=== PATIENT | female | born 1950 | race Two or more races ===

== ENCOUNTER → 2024-07-24 | Outpatient (CLI) | payer OTHER, MEDICAID, SELFPAY ==
[2024-07-24 08:33] LABS: Collection Type, Urine Clean Catch
[2024-07-24 08:55] LABS: Glucose Estimated Average 126 mg/dL (80-131)
[2024-07-24 09:04] LABS: Basophils # (Auto) 0.1 Thou/mm3 (0.0-0.2); Basophils % (Auto) 2 % (0-2.5); Eosinophils # (Auto) 0.1 Thou/mm3 (0.0-0.5); Eosinophils % (Auto) 1 % (0-10); Hematocrit 41.4 % (36.0-46.0); Hemoglobin 13.8 g/dL (12.0-16.0); Immature Granulocytes % (Auto) 0 % (0-0); Immature Granulocytes Auto 0.01 Thou/mm3 (0.00-0.00); Lymphocytes # (Auto) 2.3 Thou/mm3 (1.0-4.8); Lymphocytes % (Auto) 42 % (10-50); Mean Corpuscular HGB Conc 33.3 g/dl (31.0-37.0); Mean Corpuscular Hemoglobin 28.3 pg (25.0-35.0); Mean Corpuscular Volume 85 fL (80-100); Monocytes # (Auto) 0.4 Thou/mm3 (0.0-0.8); Monocytes % (Auto) 7 % (0-12); Neutrophils # (Auto) 2.6 Thou/mm3 (1.8-7.7); Neutrophils % (Auto) 48 % (37-80); Nucleated Red Blood Cell % 0 /100 WBC (0); Platelet Count 235 Thou/mm3 (140-440); RDW Standard Deviation 38.6 fL (36.4-46.3); Red Blood Count 4.88 Miln/mm3 (4.00-5.20); White Blood Count 5.5 Thou/mm3 (3.6-11.0)
[2024-07-24 09:14] LABS: Prothrombin Time 11.4 Seconds (9.0-12.2)
[2024-07-24 09:18] LABS: Alanine Aminotransferase 10 U/L (10-49); Albumin, Serum 4.3 gm/dL (3.4-4.8); Albumin/Globulin Ratio 1.4 (1.2-2.2); Alkaline Phosphatase 46 U/L (46-116); Anion Gap 9 (7-16); Aspartate Amino Transferase 17 U/L (0-34); BUN/Creatinine Ratio 19 Ratio (12-20); Bilirubin,Total 1.2 mg/dL (0.3-1.2); Blood Urea Nitrogen 15 mg/dL (9-23); Calcium 9.9 mg/dL (8.3-10.6); Calcium (Corrected) 9.9 mg/dL (8.5-10.1); Carbon Dioxide 33.7 mMol/L (20.0-31.0); Cardiac Risk Estimate 3.1 RATIO (3.7-5.6); Chloride 99 mMol/L (98-107); Cholesterol 172 mg/dL (132-200); Creatinine (Component) 0.8 mg/dL (0.6-1.3); Glucose 128 mg/dL (74-106); HDL Cholesterol 55 mg/dL (40-60); LDL Cholesterol,Calculated 97 mg/dL (0-130); Osmolality,Calculated 285 (275-295); Potassium 3.4 mMol/L (3.4-5.1); Sodium 142 mMol/L (136-145); Thyroid Stimulating Hormone 1.39 uIU/mL (0.55-4.78); Total Protein 7.3 gm/dL (5.7-8.2); Triglycerides 101 mg/dL (30-150); eGFR > 60 See Note
[2024-07-24 09:36] LABS: Bilirubin,Urine Negative (Negative); Blood,Urine Trace (Negative); Clarity,Urine Clear (Clear/Hazy); Color,Urine Yellow (Lt Yel-Yel); Glucose, Urine 4+ (Negative); Ketones,Urine Negative (Negative); Leukocyte Esterase,Urine Negative (Negative); Nitrite,Urine Negative (Negative); PH,Urine 6.5 (5.0-7.0); Protein,Urine Trace (Neg - Trace); RBC,Urine 6 /hpf (0-3); Specific Gravity,Urine 1.025 (1.001-1.035); Squamous Epithelial Cell,Urine 9 /hpf (0-5); Urobilinogen,Urine Negative mg/dL (0.0-1.0); WBC,Urine 3 /hpf (0-5)
== END | disposition home or self-care (01) ==
LOC: COPL 07:58
PROVIDERS: PCP Family Medicine; Referring Provider Family Medicine; Visit Provider Internal Medicine
DX: I48.91 Unspecified atrial fibrillation (principal); I20.89 Other forms of angina pectoris; I34.0 Nonrheumatic mitral (valve) insufficiency; I50.32 Chronic diastolic (congestive) heart failure
CPT/HCPCS: 36415; 80053; 80061; 81001; 83036; 84443; 85025; 85610

== ENCOUNTER → 2024-08-28 | Outpatient (CLI) | payer MEDICARE, MEDICAID, SELFPAY ==
[2024-08-28 10:28] LABS: Glucose Estimated Average 123 mg/dL (80-131); Hemoglobin A1C 5.9 % Hgb (4.8-6.0)
[2024-08-28 10:29] LABS: Anion Gap 9 (7-16); Carbon Dioxide 34.6 mMol/L (20.0-31.0); Chloride 97 mMol/L (98-107); Potassium 2.8 mMol/L (3.4-5.1); Sodium 141 mMol/L (136-145)
== END | disposition home or self-care (01) ==
PROVIDERS: PCP Family Medicine; Referring Provider Family Medicine; Visit Provider Family Medicine
DX: I50.32 Chronic diastolic (congestive) heart failure (principal); R73.01 Impaired fasting glucose
CPT/HCPCS: 36415; 80051; 83036

== ENCOUNTER → 2024-09-12 | Outpatient (CLI) | payer MEDICARE, MEDICAID, SELFPAY ==
[2024-09-12 11:59] LABS: Anion Gap 7 (7-16); BUN/Creatinine Ratio 12 Ratio (12-20); Blood Urea Nitrogen 7 mg/dL (9-23); Calcium 8.8 mg/dL (8.3-10.6); Carbon Dioxide 30.9 mMol/L (20.0-31.0); Chloride 104 mMol/L (98-107); Creatinine (Component) 0.6 mg/dL (0.6-1.3); Glucose 113 mg/dL (74-106); Osmolality,Calculated 282 (275-295); Potassium 3.1 mMol/L (3.4-5.1); Sodium 142 mMol/L (136-145); eGFR > 60 See Note
== END | disposition home or self-care (01) ==
LOC: COPL 11:07
PROVIDERS: PCP Family Medicine; Referring Provider Family Medicine; Visit Provider Family Medicine
DX: E87.6 Hypokalemia (principal)
CPT/HCPCS: 36415; 80048

== ENCOUNTER → 2024-10-23 | Outpatient (CLI) | payer MEDICARE, MEDICAID, SELFPAY ==
[2024-10-23 10:15] LABS: Glucose Estimated Average 114 mg/dL (80-131); Hemoglobin A1C 5.6 % Hgb (4.8-6.0)
[2024-10-23 10:16] LABS: Anion Gap 7 (7-16); BUN/Creatinine Ratio 21 Ratio (12-20); Blood Urea Nitrogen 15 mg/dL (9-23); Calcium 9.5 mg/dL (8.3-10.6); Chloride 101 mMol/L (98-107); Creatinine (Component) 0.7 mg/dL (0.6-1.3); Glucose 109 mg/dL (74-106); Magnesium 2.2 mg/dL (1.6-2.6); Osmolality,Calculated 277 (275-295); Potassium 3.4 mMol/L (3.4-5.1); Sodium 138 mMol/L (136-145); eGFR > 60 See Note
== END | disposition home or self-care (01) ==
PROVIDERS: PCP Family Medicine; Referring Provider Family Medicine; Visit Provider Family Medicine
DX: E87.6 Hypokalemia (principal); E11.65 Type 2 diabetes mellitus with hyperglycemia
CPT/HCPCS: 36415; 80048; 83036; 83735

== ENCOUNTER → 2024-12-13 | Outpatient (CLI) | payer MEDICARE, MEDICAID, SELFPAY ==
--- NOTE | 2024-12-13 08:54 | XR_ITS ---
Examination: Lumbar spine, 5 views Technique: Lumbar spine AP, lateral, coned lateral lower lumbar spine, bilateral obliques 5 views Exam date and time: December 13, 2024 0923 hours Comparison December 26, 2017 INDICATIONS: Low back pain several years FINDINGS: Prominent osteopenia Advanced diffuse facet arthropathy Again noted grade 1 anterolisthesis L4 on L5 Chronic moderately severe osteoporotic compression L1 No acute lumbar fracture Moderate lumbar spondylosis Mild to moderate diffuse lumbar disc narrowing, most prominent at L4-L5 IMPRESSION: Mild to moderate diffuse lumbar degenerative disc disease
== END | disposition home or self-care (01) ==
PROVIDERS: PCP Family Medicine; Referring Provider Family Medicine; Visit Provider Family Medicine
DX: M47.816 Spondylosis without myelopathy or radiculopathy, lumbar region (principal); M51.369 Other intervertebral disc degeneration, lumbar region without mention of lumbar back pain or lower extremity pain; M80.08XA Age-related osteoporosis with current pathological fracture, vertebra(e), initial encounter for fracture
CPT/HCPCS: 72110

== ENCOUNTER → 2025-01-03 | Outpatient (CLI) | payer MEDICARE, MEDICAID, SELFPAY ==
--- NOTE | 2025-01-03 13:00 | XR_ITS ---
Examination: Bone densitometry Date and time of exam:January 03, 2025 1346 hours INDICATIONS: Hysterectomy age 54 vitamin D one month, personal history osteoporosis Technique: Lumbar spine and hip total bone mineralization values of an calculated. Peak reference and age match control results have been displayed. Findings: Lumbar spine total bone mineralization is0.922 gm/cm2. This is 1.1 standard deviations below peak reference. This is 1.3 standard deviations above age-matched controls. Hip total bone mineralization is 0.732 gm/cm2 This is 1.7 standard deviations below peak reference. This is 0.1 standard deviations above age-matched controls Impression: There is osteopenia based on lumbar spine measurements. There is osteopenia based on hip measurements Lumbar mineralization is increase 0.8% compared with July 23, 2021 Hip mineralization is decreased 4.2% compared with July 23, 2021
== END | disposition home or self-care (01) ==
LOC: CDIM 13:11
PROVIDERS: Referring Provider Family Medicine; Visit Provider Family Medicine
DX: M85.89 Other specified disorders of bone density and structure, multiple sites (principal)
CPT/HCPCS: 77080

== ENCOUNTER 2025-02-01 05:58 | Emergency (ER) | payer OTHER, MEDICAID, SELFPAY ==
[2025-02-01] VITALS (7 sets, daily range): BP systolic 130–162; BP diastolic 61–90; PULSE 74–79; RESP 16–25; TEMP 36.7–38.2; O2SAT 95–98; BMI 31.1
--- NOTE | 2025-02-01 07:26 | EKG_ITS ---
[facility] Test Date: 2025-02-01 Pat Name: JOURDAN GILL Department: Room: - Gender: Female Axminster Weaver: : 1950 Requested By: Joe Baires Order Number: [id number] Reading MD: Joe Baires Measurements Intervals [place] Rate: 78 P: IN: QRS: 37 QRSD: 115 T: -42 QT: 386 QTc: 442 Interpretive Statements ATRIAL FLUTTER/TACHYCARDIA RIGHT BUNDLE BRANCH BLOCK [120+ ms QRS DURATION, UPRIGHT V1, 40+ ms S IN I/aVL/V4/V5/V6] SEPTAL MYOCARDIAL INFARCTION , OF INDETERMINATE AGE [40+ ms Q WAVE IN V1/V2] MODERATE T-WAVE ABNORMALITY, CONSIDER LATERAL ISCHEMIA [-0.1+ mV T-WAVE IN I/aVL/V5/V6] MODERATE T-WAVE ABNORMALITY, CONSIDER INFERIOR ISCHEMIA [-0.1+ mV T-WAVE IN II/aVF] No previous ECG available for comparison /store/S0/[id number]/[id number].pdf
--- NOTE | 2025-02-01 07:26 | XR_ITS ---
Examination: PA chest single view TECHNIQUE: Upright PA chest single view Date and time: February 01, 2025, 0751 hours Comparison April 25, 2023 INDICATIONS: Chest pain shortness of breath today. FINDINGS: Mild enlargement cardiac contour Cardiac leads satisfactory position Mild prominence pulmonary vasculature. No pneumonia or pulmonary edema IMPRESSION: Mild enlargement cardiac contour. No pneumonia or pulmonary edema
--- NOTE | 2025-02-01 07:27 | PD.EDRME ---
Rapid Medical Screening Exam [facility] Arrival date/time: 02/01/25 05:58 CC: Epigastric pain, with radiation up into the chest. Onset last night patient complains of nausea vomiting and diarrhea earlier this morning. Has significant cardiac history including coronary bypass. Denies chest pain shortness of breath difficulty breathing headache. Currently pain is a 4 on a 10 scale. Chief Complaint: Abdominal Pain Time Seen by Provider: 02/01/25 07:26 Vital signs: Vital Signs Temperature 98.1 F 02/01/25 06:37 Pulse Rate 79 02/01/25 06:37 Respiratory Rate 16 02/01/25 06:37 Blood Pressure 139/66 H 02/01/25 06:37 Pulse Oximetry (%) 98 02/01/25 06:37 Oxygen Delivery Method Room Air 02/01/25 06:37
[2025-02-01] MEDS: MG HYD/AL HYD/SIME (Maalox Reg) SUSP 30 ML UDC PO (07:45)
[2025-02-01 08:32] LABS: Basophils # (Auto) 0.0 Thou/mm3 (0.0-0.2); Basophils % (Auto) 1 % (0-2.5); Eosinophils # (Auto) 0.0 Thou/mm3 (0.0-0.5); Eosinophils % (Auto) 0 % (0-10); Hematocrit 38.8 % (36.0-46.0); Hemoglobin 12.7 g/dL (12.0-16.0); Immature Granulocytes Auto 0.02 Thou/mm3 (0.00-0.00); Lymphocytes # (Auto) 0.4 Thou/mm3 (1.0-4.8); Lymphocytes % (Auto) 5 % (10-50); Mean Corpuscular HGB Conc 32.7 g/dl (31.0-37.0); Mean Corpuscular Hemoglobin 29.0 pg (25.0-35.0); Mean Corpuscular Volume 89 fL (80-100); Monocytes # (Auto) 0.3 Thou/mm3 (0.0-0.8); Monocytes % (Auto) 4 % (0-12); Neutrophils # (Auto) 7.1 Thou/mm3 (1.8-7.7); Neutrophils % (Auto) 91 % (37-80); Nucleated Red Blood Cell # 0.00 Thou/mm3 (0.00-0.00); Nucleated Red Blood Cell % 0 /100 WBC (0); Platelet Count 131 Thou/mm3 (140-440); RDW Standard Deviation 42.3 fL (36.4-46.3); Red Blood Count 4.38 Miln/mm3 (4.00-5.20); White Blood Count 7.9 Thou/mm3 (3.6-11.0)
[2025-02-01 08:49] LABS: INR 1.0 (0.9-1.3); Partial Thromboplastin Time 26.5 Seconds (22.0-36.0); Prothrombin Time 11.3 Seconds (9.0-12.2)
[2025-02-01 08:51] LABS: Alanine Aminotransferase 363 U/L (10-49); Albumin, Serum 4.2 gm/dL (3.4-4.8); Albumin/Globulin Ratio 1.4 (1.2-2.2); Alkaline Phosphatase 78 U/L (46-116); Anion Gap 11 (7-16); Aspartate Amino Transferase 947 U/L (0-34); BUN/Creatinine Ratio 18 Ratio (12-20); Bilirubin,Total 3.5 mg/dL (0.3-1.2); Blood Urea Nitrogen 14 mg/dL (9-23); Calcium 10.0 mg/dL (8.3-10.6); Calcium (Corrected) 10.0 mg/dL (8.5-10.1); Carbon Dioxide 29.7 mMol/L (20.0-31.0); Chloride 101 mMol/L (98-107); Creatinine (Component) 0.8 mg/dL (0.6-1.3); Estimated Creatinine Clearance 58.4 mL/min (>60); Globulin 2.9 gm/dL (2.3-3.5); Glucose 124 mg/dL (74-106); LDH (Lactate Dehydrogenase) 749 U/L (120-246); Magnesium 1.4 mg/dL (1.6-2.6); Osmolality,Calculated 284 (275-295); Potassium 2.8 mMol/L (3.4-5.1); Sodium 142 mMol/L (136-145); Total Protein 7.1 gm/dL (5.7-8.2); Troponin I < 0.020 ng/mL (0.0-0.045); eGFR > 60 See Note
[2025-02-01 09:08] LABS: B-Type Natriuretic Peptide 175 pg/mL (0-100)
--- NOTE | 2025-02-01 09:16 | PD.EDABDPN ---
ED Abdominal Pain RME/HPI General Chief Complaint: Abdominal Pain Stated complaint: ABD PAIN Time seen by provider: 02/01/25 07:26 Arrival date/time: 02/01/25 05:58 Limitations: no limitations RME / HPI RME / HPI narrative: 02/01/25 05:58 CC: Epigastric pain, with radiation up into the chest. Onset last night patient complains of nausea vomiting and diarrhea earlier this morning. Has significant cardiac history including coronary bypass. Denies chest pain shortness of breath difficulty breathing headache. Currently pain is a 4 on a [address] GUERRERO MAIN ED EVALUATION: 74 year old female with history of Parkinson's disease, CAD, s/p CABG, s/p pacemaker placement, hypertension presents to the ED for evaluation of epigastric abdominal pain beginning this morning. Described as aching in sensation and rating 4/10. Accompanied by nausea and vomiting. Reports history of epigastric and RUQ pain in 2021 where she had an EGD performed by Dr. Galindo showing GERD with esophagitis and gastritis. Denies fevers, chills, chest pain, cough, shortness of breath, change in bowel habits, or urinary symptoms. [employer] Operators: Dr. Maya in [place], [place]. Neurologist: Dr. Phillip Related Data Home Medications ?Medication ?Instructions ?Recorded ?Confirmed albuterol sulfate 90 mcg/actuation 2 puff inhalation BID PRN 12/23/21 12/23/21 aerosol inhaler Shortness Of Breath apixaban 5 mg tablet (Eliquis) 1 tab PO QDAY 12/23/21 12/23/21 Held on 12/23/21. Instructions: Resume on 12/24/21. NO SE MADONNA KIMBALL. carbidopa 25 mg-levodopa 100 mg 1 tab PO BID 12/23/21 12/23/21 disintegrating tablet clonazepam 0.5 mg tablet 1 tab PO HS 12/23/21 12/23/21 escitalopram oxalate 10 mg tablet 1 tab PO BID 12/23/21 12/23/21 gabapentin 300 mg capsule 1 cap PO QDAY 12/23/21 12/23/21 metoprolol tartrate 100 mg tablet 1 tab PO QDAY 12/23/21 12/23/21 pantoprazole 40 mg tablet,delayed 1 tab PO QDAY 12/23/21 12/23/21 release rosuvastatin 10 mg tablet 1 tab PO HS 12/23/21 12/23/21 Previous Rx's ?Medication ?Instructions ?Recorded ondansetron HCl 4 mg tablet 4 mg PO TID FOR NAUSEA #14 tabs 02/02/25 Allergies Allergy/AdvReac Type Severity Reaction Status Date / Time No Known Allergies Allergy Verified 12/23/21 11:35 Review of Systems Review of Systems Systems Reviewed: All systems reviewed, normal except as documented Past Medical History Past Medical History NEUROLOGIC: Positive Neurological Disorders, Cerebrovascular Accident and Parkinson's Disease CARDIAC: Positive Cardiac Disorders, Hypercholesterolemia and Hypertension MUSCULOSKELETAL: Positive Musculoskeletal Disorders, Arthritis and Fibromyalgia Surgical History SURGICAL: Positive Coronary Artery Bypass Graft (30 years ago) and Pacemaker Social History SMOKING STATUS: Never smoker ED Exam General Limitations: Present no limitations General appearance: Present alert and in no apparent distress Head Head exam: Present atraumatic, normocephalic and normal inspection Eye Eye exam: Present normal appearance, PERRL and EOMI ENT ENT exam: Present normal exam, normal oropharynx and mucous membranes moist Neck Neck exam: Present normal inspection, full ROM and trachea midline Chest Chest inspection: Present normal inspection and symmetric chest wall rise Respiratory Respiratory exam: Present normal lung sounds bilaterally Cardiovascular Cardiovascular exam: Present regular rate, normal rhythm and normal heart sounds Abdominal Exam Abdominal exam: Present soft, tenderness (Mild RUQ tenderness 1+, no masses, no percussion, no rebound ) and normal bowel sounds; Absent distention Extremities Exam Extremities exam: Present normal inspection and full ROM Back Exam Back exam: Present normal inspection and full ROM Neurological Exam Neurological exam: Present alert, oriented X3 and CN II-XII intact Psychiatric Psychiatric exam: Present normal affect and normal mood Skin Skin exam: Present warm, dry, intact and normal color Course Quality Measures none Orders Category Date Time Status CT Screening NOW Care 02/02/25 15:29 Active EKG (ED ONLY) *Do not use* NOW Care 02/01/25 07:26 Completed Insert IV NOW Care 02/01/25 08:39 Active MRI Screening NOW Care 02/01/25 12:26 Active Consult to Cardiology Stat Cons 02/01/25 20:19 Ordered CA echo doppler complete Stat Exams 02/01/25 20:[address] abdomen pelvis w con Stat Exams 02/02/25 15:29 Completed EKG (ED Only) Stat Exams 02/01/25 07:26 Draft MR MRCP Stat Exams 02/02/25 Completed US gall bladder Stat Exams 02/01/25 09:29 Completed XR chest 1V Stat Exams 02/01/25 07:26 Completed B-Type Natriuretic Peptide Stat Lab 02/01/25 08:00 Completed Blood Culture (Lab) Stat Lab 02/01/25 16:02 Results CBC Stat Lab 02/01/25 08:00 Completed CBC Stat Lab 02/01/25 16:02 Completed CBC Stat Lab 02/02/25 07:00 Completed CMP [Comprehensive Metabolic Panel] Stat Lab 02/01/25 16:02 Completed CMP [Comprehensive Metabolic Panel] Stat Lab 02/02/25 07:00 Completed Comprehensive Metabolic Panel Stat Lab 02/01/25 08:00 Completed Drug Screen,Urine Stat Lab 02/01/25 14:10 Completed LDH (Lactate Dehydrogenase) Stat Lab 02/01/25 08:00 Completed Lactate (Lactic Acid) Stat Lab 02/01/25 16:02 Completed Lactic Acid [Lactate (Lactic Acid)] Stat Lab 02/02/25 07:00 Completed Lactic Acid, 3 HR Stat Lab 02/01/25 20:24 Completed Lipase Stat Lab 02/02/25 07:00 Completed Magnesium Stat Lab 02/01/25 08:00 Completed Magnesium Stat Lab 02/01/25 16:02 Completed Partial Thromboplastin Time Stat Lab 02/01/25 08:00 Completed Procalcitonin Stat Lab 02/01/25 16:02 Completed Procalcitonin Stat Lab 02/02/25 07:00 Completed Prothrombin Time with INR Stat Lab 02/01/25 08:00 Completed Troponin I Stat Lab 02/01/25 08:00 Completed Urinalysis Stat Lab 02/01/25 14:10 Completed Acetaminophen Tab [Tylenol Tab] Med 02/01/25 20:13 Discontinued 650 mg PO X1 ONE Ketorolac Inj [Toradol Inj] Med 02/01/25 20:57 Discontinued 30 mg IVP X1 ONE Magnesium Sulfate 2 GM Ivpb [Magnesium Sulfate Ivpb] Med 02/01/25 09:32 Discontinued 2 gm in 50 ml IV X1 POTASSIUM CHL 10 mEq IVPB [Kcl Ivpb] Med 02/01/25 09:31 Discontinued 10 meq in 100 ml IV Q1H POTASSIUM CHL 10 mEq IVPB [Kcl Ivpb] Med 02/02/25 10:52 Discontinued 10 meq in 100 ml IV Q1H Piper/Tazo 3.375 gm Premix [Zosyn] Med 02/01/25 15:38 Discontinued 3.375 gm in 50 ml IV X1 Piper/Tazo 3.375 gm Premix [Zosyn] Med 02/02/25 01:27 Discontinued 3.375 gm in 50 ml IV X1 Piper/Tazo 3.375 gm Premix [Zosyn] Med 02/02/25 08:00 Discontinued 3.375 gm in 50 ml IV X1 Sodium Chloride 0.9% 1000 ml [Ns] 1,000 ml Med 02/01/25 10:15 Discontinued IV 250 mls/hr Sodium Chloride 0.9% 500 ml [Ns] 500 ml Med 02/02/25 10:52 Discontinued IV 999 mls/hr mg Hyd/Al Hyd/Angel Susp [Maalox Susp] Med 02/01/25 07:26 Discontinued 30 ml PO X1 ONE Vital Signs Vital signs: Vital Signs Temperature 98.1 F 02/01/25 06:37 Pulse Rate 79 02/01/25 06:37 Respiratory Rate 16 02/01/25 06:37 Blood Pressure 139/66 H 02/01/25 06:37 Pulse Oximetry (%) 98 02/01/25 06:37 Oxygen Delivery Method Room Air 02/01/25 06:37 Pulse ox is 98% on room air which is adequate. Abdominal Pain MDM MDM Narrative MDM Narrative:: Enedina Mo am scribing for and in the presence of Dr. Guerrero. 1800: Patient signed out to Dr. Christian pending MRCP. Patient data External records reviewed:: [facility] previous records (I reviewed EGD on 12/23/2021 ) Clinical information provided by:: patient Social determinants that could affect healthcare access:: none Patient has the following chronic illnesses:: Parkinson's disease, CAD, s/p CABG, s/p pacemaker placement, hypertension In 2021 diagnosed with GERD and gastritis How is presenting disease/condition affected by chronic disease/condition?: exacerbated by Evaluation data The following diagnostics were reviewed and interpreted by me:: lab results, radiology exam(s) and EKG tracing(s) (02/01/2025 @ 07:31 AM. Atrial tachycardia, rate 78, right bundle branch block, no STEMI) Lab and/or radiology exams considered but not ordered:: None Interpretation Summary: Ordering Physician: Joe Doan NP Date of Service: 02/01/25 Procedure(s): XR chest 1V Accession Number(s): [id number] cc: Joe Doan NP; Keith Alvares MD~ Examination: PA chest single view TECHNIQUE: Upright PA chest single view Date and time: February 01, 2025, 0751 hours Comparison April 25, 2023 INDICATIONS: Chest pain shortness of breath today. FINDINGS: Mild enlargement cardiac contour Cardiac leads satisfactory position Mild prominence pulmonary vasculature. No pneumonia or pulmonary edema IMPRESSION: Mild enlargement cardiac contour. No pneumonia or pulmonary edema Dictated By: Keith Alvares MD Signed By: <Electronically signed by Keith Alvares MD in [place]> 02/01/25 0759 Ordering Physician: Jaylen Guerrero MD Date of Service: 02/01/25 Procedure(s): US gall bladder Accession Number(s): [id number] cc: Jaylen Guerrero MD; Keith Alvares MD; Ivy Green MD~ Examination: Abdomen sonogram, Limited Date and time of exam: February 01, 2025, 0947 hours INDICATIONS: Epigastric pain beginning today Technique: Real-time lofton scale transabdominal sonographic images of the upper abdomen obtained. Findings: 7 mm echogenic structure without shadowing which may represent a sludge ball or polyp Gallbladder wall 0.35 cm no edema Common bile duct 0.4 cm Pancreatic head 2.8 cm Liver 13.4 cm fatty infiltration smooth contour no focal liver lesions Normal hepatopedal portal venous flow Patent IVC IMPRESSION: 7 mm sludge ball or polyp Borderline thickening gallbladder wall 0.35 cm, clinical correlation advised, consider HIDA scan or MRCP follow-up to exclude cholecystitis as clinically warranted Dictated By: Keith Alvares MD Signed By: <Electronically signed by Keith Alvares MD in [place]> 02/01/25 1018 Medications / Prescriptions Medications or Prescriptions considered but not ordered:: None Medication administrations:: Medication Administration History Discontinued Medications Acetaminophen (Acetaminophen 325 Mg Tablet) 650 mg PO X1 ONE Stop: 02/01/25 20:14 Last Admin: 02/01/25 20:58 Dose: Not Given Documented By: DK Non-Admin Reason: Cancelled by Provider Al Hydrox/Mg Hydrox/Simethicone (Mg Hyd/Al Hyd/Angel (Maalox Reg) Susp 30 Ml Udc) 30 ml PO X1 ONE Stop: 02/01/25 07:27 Last Admin: 02/01/25 07:45 Dose: 30 ml Documented By: BENY Potassium Chloride (Kcl Ivpb) 10 meq in 100 mls @ 100 mls/hr IV Q1H MORRIS Stop: 02/01/25 13:30 Last Infusion: 02/01/25 15:48 Dose: Infused Documented By: Admin: 02/01/25 13:40 Dose: 60 mls/hr Documented By: Infusion: 02/01/25 13:31 Dose: Infused Documented By: Infusion: 02/01/25 12:35 Dose: 60 mls/hr Documented By: Admin: 02/01/25 12:08 Dose: 100 mls/hr Documented By: Infusion: 02/01/25 12:06 Dose: Infused Documented By: Admin: 02/01/25 11:06 Dose: 100 mls/hr Documented By: Infusion: 02/01/25 11:06 Dose: Infused Documented By: Admin: 02/01/25 10:31 Dose: 100 mls/hr Documented By: BENY Magnesium Sulfate (Magnesium Sulfate Ivpb) 2 gm in 50 mls @ 25 mls/hr IV X1 ONE Stop: 02/01/25 11:31 Last Infusion: 02/01/25 12:16 Dose: Infused Documented By: Admin: 02/01/25 10:28 Dose: 25 mls/hr Documented By: BENY Sodium Chloride (Ns) 1,000 mls @ 250 mls/hr IV .Q4H ONE Stop: 02/01/25 14:14 Last Infusion: 02/01/25 15:49 Dose: Infused Documented By: Admin: 02/01/25 10:22 Dose: 250 mls/hr Documented By: BENY Piperacillin/Tazobactam/Dextrose (Zosyn) 3.375 gm in 50 mls @ 100 mls/hr IV X1 ONE Stop: 02/01/25 16:07 Last Infusion: 02/01/25 16:45 Dose: Infused Documented By: Admin: 02/01/25 15:55 Dose: 100 mls/hr Documented By: SM Piperacillin/Tazobactam/Dextrose (Zosyn) 3.375 gm in 50 mls @ 100 mls/hr IV X1 ONE Stop: 02/02/25 01:56 Last Infusion: 02/02/25 02:48 Dose: Infused Documented By: Admin: 02/02/25 02:18 Dose: 100 mls/hr Documented By: RC Piperacillin/Tazobactam/Dextrose (Zosyn) 3.375 gm in 50 mls @ 100 mls/hr IV X1 ONE Stop: 02/02/25 08:29 Last Infusion: 02/02/25 08:56 Dose: Infused Documented By: Admin: 02/02/25 08:26 Dose: 100 mls/hr Documented By: ER Potassium Chloride (Kcl Ivpb) 10 meq in 100 mls @ 100 mls/hr IV Q1H MORRIS Stop: 02/02/25 13:51 Last Admin: 02/02/25 16:11 Dose: 75 mls/hr Documented By: Infusion: 02/02/25 15:29 Dose: Infused Documented By: Admin: 02/02/25 14:29 Dose: 100 mls/hr Documented By: Infusion: 02/02/25 12:30 Dose: Infused Documented By: Admin: 02/02/25 11:09 Dose: 100 mls/hr Documented By: ER Sodium Chloride (Ns) 500 mls @ 999 mls/hr IV .Q31M ONE Stop: 02/02/25 11:22 Last Infusion: 02/02/25 13:10 Dose: Infused Documented By: Admin: 02/02/25 11:10 Dose: 999 mls/hr Documented By: ER Ketorolac Tromethamine (Ketorolac Inj 30 Mg/Ml Vial) 30 mg IVP X1 ONE Stop: 02/01/25 20:58 Last Admin: 02/01/25 21:23 Dose: 30 mg Documented By: EF See above Consultations Consultation(s) initiated? (list below): No Diagnosis Differential diagnosis abdominal pain: abdominal pain, gastroenteritis and other (gastritis, cholecystitis, cholelithiasis ) Most likely diagnosis given after review of the tests above:: ABDOMINAL PAIN, ELEVATED BILIRUBIN Admission Indicated Admission indicated?: not indicated Explain why admission is indicated or not indicated:: Signed out pending final disposition Admission Request Was there a request for admission?: No Disposition Plan Disposition Plan: other (specify) (Signed out to Dr. Christian ) Discharge Plan Plan Patient Disposition: HOME (Self Care) Patient condition on transfer: Stable Prescriptions/Referrals Prescriptions/Med Rec: New ondansetron HCl 4 mg tablet 4 mg PO TID MDD 3 Qty: 14 0RF No Action metoprolol tartrate 100 mg tablet 1 tab PO QDAY clonazepam 0.5 mg tablet 1 tab PO HS Patient Comments: TAKE 1 TABLET BY MOUTH EVERY DAY AT BEDTIME NEEDED pantoprazole 40 mg tablet,delayed release (DR/EC) 1 tab PO QDAY Patient Comments: TAKE 1 TABLET BY MOUTH EVERY DAY gabapentin 300 mg capsule 1 cap PO QDAY albuterol sulfate 90 mcg/actuation HFA aerosol inhaler 2 puff INHALATION BID PRN (Reason: Shortness Of Breath) Patient Comments: PLEASE SEE ATTACHED FOR DETAILED DIRECTIONS escitalopram oxalate 10 mg tablet 1 tab PO BID rosuvastatin 10 mg tablet 1 tab PO HS Patient Comments: TAKE 1 TABLET BY MOUTH EVERY DAY carbidopa-levodopa 25-100 mg tablet,disintegrating 1 tab PO BID Patient Comments: TAKE 1 TABLET BY MOUTH EVERY DAY Eliquis 5 mg tablet 1 tab PO QDAY Patient Comments: TAKE 1 TABLET BY MOUTH TWICE A DAY Referrals: Brigida Galindo MD [Physician] - 02/04/25 Ivy Dhillon MD [Primary Care Provider] - In 1 week Problem List Clinical Impression: Total bilirubin, elevated, Jaundice, Hypokalemia Patient/Caregiver Discharge Instructions Additional Instructions: Please follow-up with your primary care physician within 2-3 days and follow up with Dr. Galindo. Return to the Emergency Department as needed. Por favor, consulte con moore m?dico de cabecera dentro de 2-3 d?as y con el Dr. Galindo. Regrese a Urgencias cuando sea necesario. Print Language: Gabonese
--- NOTE | 2025-02-01 09:29 | XR_ITS ---
Examination: Abdomen sonogram, Limited Date and time of exam: February 01, 2025, 0947 hours INDICATIONS: Epigastric pain beginning today Technique: Real-time lofton scale transabdominal sonographic images of the upper abdomen obtained. Findings: 7 mm echogenic structure without shadowing which may represent a sludge ball or polyp Gallbladder wall 0.35 cm no edema Common bile duct 0.4 cm Pancreatic head 2.8 cm Liver 13.4 cm fatty infiltration smooth contour no focal liver lesions Normal hepatopedal portal venous flow Patent IVC IMPRESSION: 7 mm sludge ball or polyp Borderline thickening gallbladder wall 0.35 cm, clinical correlation advised, consider HIDA scan or MRCP follow-up to exclude cholecystitis as clinically warranted
[2025-02-01] MEDS: SODIUM CHLORIDE 0.9% 1000 ML 1,000 ML 250 ML IV (10:22)
[2025-02-01] MEDS: Magnesium Sulfate 2 GM Ivpb 2 GM/50 ML BAG IV (10:28)
[2025-02-01] MEDS: POTASSIUM CHL 10 mEq IVPB 10 MEQ/100 ML BAG 100 MEQ IV ×3 (10:31→12:08)
[2025-02-01] MEDS: POTASSIUM CHL 10 mEq IVPB 10 MEQ/100 ML BAG 60 MEQ IV (13:40)
[2025-02-01 14:21] LABS: Bacteria,Urine 2+; Bilirubin,Urine Negative (Negative); Blood,Urine 1+ (Negative); Color,Urine Yellow (Lt Yel-Yel); Glucose, Urine 4+ (Negative); Ketones,Urine 1+ (Negative); Leukocyte Esterase,Urine Positive (Negative); Nitrite,Urine Negative (Negative); PH,Urine 7.0 (5.0-7.0); Protein,Urine Trace (Neg - Trace); RBC,Urine 14 /hpf (0-3); Specific Gravity,Urine 1.021 (1.001-1.035); Squamous Epithelial Cell,Urine 2 /hpf (0-5); Urobilinogen,Urine 2.0 mg/dL (0.0-1.0); WBC,Urine 10 /hpf (0-5)
[2025-02-01 14:28] LABS: Amphetamine/Methamp Scrn,U Negative (Negative); Barbiturate Screen,Urine Negative (Negative); Benzodiazepines Screen,Urine Negative (Negative); Benzoylecgonine Screen, Ur Negative (Negative); Fentanyl Screen,Urine Negative (Negative); Opiate Screen,Urine Negative (Negative); THC Screen,Urine Negative (Negative)
[2025-02-01 15:02] LABS: Collection Type, Urine UCC
[2025-02-01 15:03] LABS: Clarity,Urine Hazy (Clear/Hazy)
[2025-02-01] MEDS: PIPER/TAZO 3.375 GM PREMIX 3.375 GM/50 ML BAG IV (15:55)
[2025-02-01 16:24] LABS: Lactate (Lactic Acid) 2.2 mMol/L (0.4-2.0)
[2025-02-01 16:28] LABS: Basophils # (Auto) 0.1 Thou/mm3 (0.0-0.2); Basophils % (Auto) 0 % (0-2.5); Eosinophils # (Auto) 0.0 Thou/mm3 (0.0-0.5); Eosinophils % (Auto) 0 % (0-10); Hematocrit 37.3 % (36.0-46.0); Hemoglobin 12.2 g/dL (12.0-16.0); Immature Granulocytes Auto 0.07 Thou/mm3 (0.00-0.00); Lymphocytes # (Auto) 0.8 Thou/mm3 (1.0-4.8); Lymphocytes % (Auto) 7 % (10-50); Mean Corpuscular HGB Conc 32.7 g/dl (31.0-37.0); Mean Corpuscular Hemoglobin 29.0 pg (25.0-35.0); Mean Corpuscular Volume 89 fL (80-100); Monocytes # (Auto) 0.4 Thou/mm3 (0.0-0.8); Monocytes % (Auto) 3 % (0-12); Neutrophils # (Auto) 10.4 Thou/mm3 (1.8-7.7); Neutrophils % (Auto) 89 % (37-80); Nucleated Red Blood Cell # 0.00 Thou/mm3 (0.00-0.00); Nucleated Red Blood Cell % 0 /100 WBC (0); Platelet Count 134 Thou/mm3 (140-440); RDW Standard Deviation 43.7 fL (36.4-46.3); Red Blood Count 4.21 Miln/mm3 (4.00-5.20); White Blood Count 11.7 Thou/mm3 (3.6-11.0)
[2025-02-01 17:00] LABS: Alanine Aminotransferase 384 U/L (10-49); Albumin, Serum 4.0 gm/dL (3.4-4.8); Albumin/Globulin Ratio 1.5 (1.2-2.2); Alkaline Phosphatase 79 U/L (46-116); Anion Gap 10 (7-16); Aspartate Amino Transferase 669 U/L (0-34); BUN/Creatinine Ratio 14 Ratio (12-20); Bilirubin,Total 5.3 mg/dL (0.3-1.2); Blood Urea Nitrogen 10 mg/dL (9-23); Calcium 9.2 mg/dL (8.3-10.6); Calcium (Corrected) 9.2 mg/dL (8.5-10.1); Carbon Dioxide 25.0 mMol/L (20.0-31.0); Chloride 105 mMol/L (98-107); Creatinine (Component) 0.7 mg/dL (0.6-1.3); Estimated Creatinine Clearance 66.8 mL/min (>60); Globulin 2.7 gm/dL (2.3-3.5); Glucose 144 mg/dL (74-106); Magnesium 2.0 mg/dL (1.6-2.6); Osmolality,Calculated 281 (275-295); Potassium 3.7 mMol/L (3.4-5.1); Procalcitonin 10.08 ng/ml (0.0-0.49); Sodium 140 mMol/L (136-145); Total Protein 6.7 gm/dL (5.7-8.2); eGFR > 60 See Note
--- NOTE | 2025-02-01 18:17 | PD.EDADDENDU ---
Emergency Room Addendum Addendum Narrative: 1800: Care assumed from Dr. Daigle, the previous shift emergency physician. Past medical, surgical, social and family history reviewed. Vitals and home medications reviewed. Results and treatment plan discussed. I will assume the care of the patient at this time and will follow the patient, pending MRCP. Please refer to the emergency department record for history and examination from initial visit. 1815: Patient states she is currently pain-free. Cardiology signed the form to clear the patient for MRI in the morning. 0600: Care signed out to Dr. Daigle (emergency physician). Past medical, surgical, social and family history reviewed. Vitals and home medications reviewed. Results and treatment plan discussed. They will assume the care of the patient at this time and will follow the patient, pending MRCP.
[2025-02-01 19:22] LABS: Reflex Lactate? Y
--- NOTE | 2025-02-01 20:17 | PD.RESCONSUL ---
HPI Data of Consult Patient: new to practice Consult date: 02/01/25 Requesting Physician: ED Primary Care Provider: Ivy Dhillon MD Consult Narrative History of present illness: Patient is 73-year-old female with a past medical history of parkinsonism, atrial flutter, on Eliquis, bradycardia s/p pacemaker placement, in 2019, hypertension, history of pleural effusion, the patient came to ED for evaluation of epigastric abdominal pain which started this morning. Also associated with nausea and vomiting. Initial labs in the ED were concerning for cholecystitis versus cholangitis, noted leukocytosis, CHEM panel shows elevated total bilirubin as well as AST and ALT, T. bili 4.3, AST 669, ALT 334, alkaline phosphatase 79, LDH 749, procalcitonin 10.08, urinalysis shows 10 WBCs, 2+ bacteria, lactic acid 2.2,Ultrasound gallbladder showed 7 mm sludge ball or polyp, recommended MRCP or HIDA scan, EKG shows atrial flutter, rate controlled with bundle branch block pattern. Cardiology was consulted due to concern for MRI compatibility patient's pacemaker. Patient has an Rios pacemaker [place] [address] Rajendra Maya in [place], MR conditional rated. Past medical history: History of parkinsonism, atrial flutter on Eliquis, bradycardia status post pacemaker in 2020, questionable history of CHF, history of pleural effusion requiring thoracentesis in the past. Past surgical history: History of open heart surgery, 30 to 40 years ago, reportedly patient had a hole in her heart which was closed, unsure if ASD or VSD, Allergies: NKDA Social history: Denies smoking and drinking cc:: cc: Review of Systems Review of Systems Systems Reviewed: All systems reviewed, normal except as documented Past Medical History Past Medical History NEUROLOGIC: Positive Neurological Disorders, Cerebrovascular Accident and Parkinson's Disease; Negative Seizures CARDIAC: Positive Cardiac Disorders, Hypercholesterolemia and Hypertension; Negative Congestive Heart Failure RESPIRATORY: Negative Respiratory Disorders or Chronic Obstructive Pulmonary Disease (COPD) GASTROINTESTINAL: Negative Gastrointestinal Disorders GENITOURINARY: Negative Genitourinary Disorders or Renal Disease REPRODUCTIVE: Negative Pelvic Inflammatory Disease MUSCULOSKELETAL: Positive Musculoskeletal Disorders, Arthritis and Fibromyalgia ENDOCRINE: Negative Endocrine Disorders, Diabetes Mellitus Type 1 or Diabetes Mellitus Type 2 OTHER HISTORY: Negative Autoimmune Disease, Blood Transfusions, Blood Transfusion Reaction, Anesthesia Reactions or Cancer Surgical History SURGICAL: Positive Coronary Artery Bypass Graft (30 years ago) and Pacemaker Social History SMOKING STATUS: Never smoker Exam Vital Signs Temp Pulse Resp BP Pulse Ox O2 Del Method 99.2 F 77 17 132/74 H 95 Room Air 02/01/25 18:37 02/01/25 18:37 02/01/25 18:37 02/01/25 18:37 02/01/25 18:37 02/01/25 18:37 Narrative Exam General: AOx3, cooperative, in no acute distress, looks stated age, Skin: Intact, no cyanosis or edema noted. Noted median sternotomy scar, varicose veins on lower extremity HEENT: Atraumatic/normocephalic, STEPHANIE, neck supple Heart: RRR, S1 and S2 without clicks or murmurs Lungs: Clear on auscultation bilaterally, no difficulty breathing Abdomen: Soft, nontender. Bowel sounds present . Vascular: Peripheral pulses palpable Neuro: No focal neurological deficits noted. Results Labs 02/02/25 07:00 02/02/25 07:00 Labs: Short CBC 02/01/25 02/01/25 Range/Units 08:00 16:02 WBC 7.9 11.7 H D (3.6-11.0) Thou/mm3 Hgb 12.7 12.2 (12.0-16.0) g/dL Hct 38.8 37.3 (36.0-46.0) % Plt Count 131 L 134 L (140-440) Thou/mm3 BMP 02/01/25 02/01/25 08:00 16:02 Sodium 142 140 Potassium 2.8 L 3.7 D Chloride 101 105 Carbon Dioxide 29.7 25.0 BUN 14 10 Creatinine 0.8 0.7 Glucose 124 H 144 H Calcium 10.0 9.2 Cardiac Enzymes 02/01/25 Range/Units 08:00 Troponin I < 0.020 (0.0-0.045) ng/mL Liver Function 02/01/25 02/01/25 Range/Units 08:00 16:02 Total Bilirubin 3.5 H 5.3 H D (0.3-1.2) mg/dL AST 947 H* 669 H* (0-34) U/L ALT 363 H 384 H (10-49) U/L Alkaline Phosphatase 78 79 (46-116) U/L Albumin 4.2 4.0 (3.4-4.8) gm/dL Urine 02/01/25 Range/Units 14:10 Urine Color Yellow (Lt Yel-Yel) Urine Clarity Hazy (Clear/Hazy) Urine pH 7.0 (5.0-7.0) Ur Specific Max 1.021 (1.001-1.035) Urine Protein Trace (Neg - Trace) Urine Glucose (UA) 4+ A (Negative) Quality Measures Quality Measures none Advance care planning discussed with:: patient Medications Home Medications and Allergies Home Medications ?Medication ?Instructions ?Recorded ?Confirmed ?Type albuterol sulfate 90 mcg/actuation 2 puff inhalation BID PRN 12/23/21 12/23/21 History aerosol inhaler Shortness Of Breath apixaban 5 mg tablet (Eliquis) 1 tab PO QDAY 12/23/21 12/23/21 History Held on 12/23/21. Instructions: Resume on 12/24/21. NO SE MADONNA KIMBALL. carbidopa 25 mg-levodopa 100 mg 1 tab PO BID 12/23/21 12/23/21 History disintegrating tablet clonazepam 0.5 mg tablet 1 tab PO HS 12/23/21 12/23/21 History escitalopram oxalate 10 mg tablet 1 tab PO BID 12/23/21 12/23/21 History gabapentin 300 mg capsule 1 cap PO QDAY 12/23/21 12/23/21 History metoprolol tartrate 100 mg tablet 1 tab PO QDAY 12/23/21 12/23/21 History pantoprazole 40 mg tablet,delayed 1 tab PO QDAY 12/23/21 12/23/21 History release rosuvastatin 10 mg tablet 1 tab PO HS 12/23/21 12/23/21 History Allergies Allergy/AdvReac Type Severity Reaction Status Date / Time No Known Allergies Allergy Verified 12/23/21 11:35 Visit Medications Discontinued Medications Acetaminophen (Acetaminophen 325 Mg Tablet) 650 mg PO X1 ONE Stop: 02/01/25 20:14 Al Hydrox/Mg Hydrox/Simethicone (Mg Hyd/Al Hyd/Angel (Maalox Reg) Susp 30 Ml Udc) 30 ml PO X1 ONE Stop: 02/01/25 07:27 Last Admin: 02/01/25 07:45 Dose: 30 ml Potassium Chloride (Kcl Ivpb) 10 meq in 100 mls @ 100 mls/hr IV Q1H MORRIS Stop: 02/01/25 13:30 Last Infusion: 02/01/25 15:48 Dose: Infused Magnesium Sulfate (Magnesium Sulfate Ivpb) 2 gm in 50 mls @ 25 mls/hr IV X1 ONE Stop: 02/01/25 11:31 Last Infusion: 02/01/25 12:16 Dose: Infused Sodium Chloride (Ns) 1,000 mls @ 250 mls/hr IV .Q4H ONE Stop: 02/01/25 14:14 Last Infusion: 02/01/25 15:49 Dose: Infused Piperacillin/Tazobactam/Dextrose (Zosyn) 3.375 gm in 50 mls @ 100 mls/hr IV X1 ONE Stop: 02/01/25 16:07 Last Infusion: 02/01/25 16:45 Dose: Infused Assessment & Plan Plan Patient is 73-year-old female with a past medical history of parkinsonism, atrial flutter, on Eliquis, bradycardia s/p pacemaker placement, in 2019, hypertension, history of pleural effusion, the patient came to ED for evaluation of epigastric abdominal pain which started this morning. Also associated with nausea and vomiting. Initial labs in the ED were concerning for cholecystitis versus cholangitis, noted leukocytosis, CHEM panel shows elevated total bilirubin as well as AST and ALT, T. bili 4.3, AST 669, ALT 334, alkaline phosphatase 79, LDH 749, procalcitonin 10.08, urinalysis shows 10 WBCs, 2+ bacteria, lactic acid 2.2,Ultrasound gallbladder showed 7 mm sludge ball or polyp, recommended MRCP or HIDA scan, EKG shows atrial flutter, rate controlled with bundle branch block pattern. Cardiology was consulted due to concern for MRI compatibility patient's pacemaker. Patient has an Rios pac[place] [address] Rajendra Maya in [place], MR conditional rated. 1. History of bradycardia status post pacemaker 2. Paroxysmal atrial fibrillation 3. Essential hypertension 4. Abnormal LFTs-concern for cholecystitis versus cholangitis 5. Hyperlipidemia 6. History of pleural effusion 7. History of open heart surgery status post ASD or VSD repair 40 years ago The patient presented to the ED complaining of abdominal pain and nausea vomiting, initial labs concerning for elevated liver enzymes as well as hyperbilirubinemia, concern for cholecystitis versus cholangitis, gallbladder ultrasound showed 7 mm sludge versus polyp in the gallbladder, pending MRCP. Cardiology was consulted for evaluation of the patient, clearance of MR compatibility by bellhop. Patient has a history of atrial flutter, currently noted to be rate controlled, heart rate in the 70s, no acute ST-T changes noted on EKG. The patient is currently saturating well on room air, the patient has history of pleural effusion, noted no pleural effusion on chest x-ray. The patient has a median sternotomy scar, per patient she had corrective surgery of a hole in her heart over 30 years ago. Patient denied history of ischemic heart disease, denies shortness of breath. Denies chest pain, heaviness or dizziness. ? Echocardiogram is ordered we will follow-up Plan of care discussed with bellhop Dr. Charlotte Soler PGY 3 Attending Provider Attestation/Addendum I have personally seen and examined the patient separately on the above date of service and discussed the plan of care with the resident. I reviewed the resident Dr. Enriquez consultation progress note and agree with the resident findings and plan in the note above and have also edited the documentation to reflect my findings and plan. A 73-year-old female with a past medical history of sick sinus syndrome, bradycardia status post permanent pacemaker in 2019, Rios device MR conditional, paroxysmal atrial fibrillation, history of open heart surgery for possible ASD versus VSD 40 years ago, parkinsonism, essential hypertension,, hyperlipidemia, mild anemia initially presented to the emergency department for epigastric abdominal pain along with nausea and vomiting. In the emergency department patient total bili was elevated at 4.3 and continued to increase along with AST and ALT increased at 669, ALT of 334 and alk phos of 79 and procalcitonin is 10.08, LDH 749. Lactate was 2.2. Ultrasound gallbladder showed 7 cm sludge and recommended MRCP or HIDA scan. Cardiology is consulted for MRI compatibility of the patient's pacemaker. EKG showed atrial fibrillation without any acute ST-T changes. Obtained the patient's pacemaker card from the family and patient has a Rios pacemaker placed in 2019 and had apparently had a recent pacer check with her bellhop in is functioning well. I completed the MRI form and patient can have an MRCP. Patient has a history of open heart surgery with possible ASD versus VSD repair 40 years ago and recommended an echocardiogram to for further evaluation and to obtain baseline for the patient. Management of rest of the medical conditions as per primary team and other consultants. Thank you for the consult and allowing me to participate in the care of the patient. Cardiology will continue to follow. Ray Porter M.D. Interventional Cardiology
[2025-02-01 20:30] LABS: Lactic Acid, 3 HR 1.5 mMol/L (0.4-2.0)
[2025-02-01] MEDS: KETOROLAC INJ 30 MG/ML VIAL IVP (21:23)
[2025-02-02] VITALS (7 sets, daily range): BP systolic 118–153; BP diastolic 54–72; PULSE 75–78; RESP 16–18; TEMP 36.6–37.1; O2SAT 95–99
--- NOTE | 2025-02-02 | XR_ITS ---
MRI abdomen, without contrast. MRCP Date and time of exam: February 02 70,025 1137 hours INDICATIONS: Epigastric pain and abdominal pain beginning yesterday morning, gallbladder sonogram February 01, 2025 7 mm sludge ball versus gallbladder polyp, borderline thickening gallbladder wall Technique: Multiple axial and coronal images of the abdomen have been obtained with the Siemens 1.5T MRI scanner. Images obtained included T1 weighted transverse images, T2-weighted transverse images, T2-weighted transverse images fat-suppressed, T2 weighted haste fat suppressed transverse images, T1 weighted images, in and out of phase images, T2-weighted coronal images, breath hold, T2 weighted haze coronal images as well as T2 weighted coronal thick slab images, MRCP. Findings: No focal liver lesions No gallstones No gallbladder wall thickening or edema Normal common hepatic common bile duct no stones Negative for pancreatitis No splenomegaly No ascites Aorta normal size Small bilateral benign renal cysts IMPRESSION: Negative for cholelithiasis, negative cholecystitis Normal common hepatic common bile duct
[2025-02-02] MEDS: PIPER/TAZO 3.375 GM PREMIX 3.375 GM/50 ML BAG IV ×2 (02:18→08:26)
--- NOTE | 2025-02-02 06:24 | EDNOTE_ITS ---
Emergency Room Addendum Addendum Narrative: 0600: Care assumed from Dr. Christian, the previous shift emergency physician. Past medical, surgical, social and family history reviewed. Vitals and home medications reviewed. I will assume the care of the patient at this time, pending pending MRCP and final disposition. Please refer to the emergency department record for history and examination from initial visit.? Physical exam by me shows patient under no acute distress at this time. 1531: Discussed test HPI, PMHx, lab, radiology results and/or management with Dr. Galindo. Discussed about normal MRCP and he recommends to get a CT to make sure there is no fluid in the gallbladder faucet. 1723: Patient will be discharged and recommended to follow-up with Dr. Galindo. Patient remains clinically stable throughout the emergency department visit. Re- assessment at the time of disposition demonstrates that the patient is in no acute distress. We reviewed all the results, analysis, and treatment plans. Patient is amenable to discharge. Strict return precautions were outlined. Patient was discharged in stable condition. Diagnoses: Elevated total bilirubin Jaundice Hypokalemia Results Objective Laboratory: Laboratory Last Values WBC 7.8 Thou/mm3 (3.6-11.0) 02/02/25 07:00 RBC 3.80 Miln/mm3 (4.00-5.20) L 02/02/25 07:00 Hgb 11.1 g/dL (12.0-16.0) L 02/02/25 07:00 Hct 34.0 % (36.0-46.0) L 02/02/25 07:00 MCV 90 fL (80-100) 02/02/25 07:00 MCH 29.2 pg (25.0-35.0) 02/02/25 07:00 MCHC 32.6 g/dl (31.0-37.0) 02/02/25 07:00 RDW Std Deviation 45.1 fL (36.4-46.3) 02/02/25 07:00 Plt Count 114 Thou/mm3 (140-440) L 02/02/25 07:00 Neut % (Auto) 81 % (37-80) H 02/02/25 07:00 Lymph % (Auto) 13 % (10-50) 02/02/25 07:00 [place]ro % (Auto) 5 % (0-12) 02/02/25 07:00 Eos % (Auto) 1 % (0-10) 02/02/25 07:00 Baso % (Auto) 1 % (0-2.5) 02/02/25 07:00 Neut # (Auto) 6.3 Thou/mm3 (1.8-7.7) 02/02/25 07:00 Lymph # (Auto) 1.0 Thou/mm3 (1.0-4.8) 02/02/25 07:00 [place] # (Auto) 0.4 Thou/mm3 (0.0-0.8) 02/02/25 07:00 Eos # (Auto) 0.0 Thou/mm3 (0.0-0.5) 02/02/25 07:00 Baso # (Auto) 0.0 Thou/mm3 (0.0-0.2) 02/02/25 07:00 Immature Gran # (Auto) 0.03 Thou/mm3 (0.00-0.00) H 02/02/25 07:00 Absolute Nucleated RBC 0.00 Thou/mm3 (0.00-0.00) 02/02/25 07:00 Immature Gran % 0 % (0-0) 02/02/25 07:00 Nucleated RBC % 0 /100 WBC (0) 02/02/25 07:00 PT 11.3 Seconds (9.0-12.2) 02/01/25 08:00 INR 1.0 (0.9-1.3) 02/01/25 08:00 APTT 26.5 Seconds (22.0-36.0) 02/01/25 08:00 Sodium 142 mMol/L (136-145) 02/02/25 07:00 Potassium 3.2 mMol/L (3.4-5.1) L D 02/02/25 07:00 Chloride 106 mMol/L (98-107) 02/02/25 07:00 Carbon Dioxide 26.3 mMol/L (20.0-31.0) 02/02/25 07:00 Anion Gap 10 (7-16) 02/02/25 07:00 BUN 17 mg/dL (9-23) 02/02/25 07:00 Creatinine 1.0 mg/dL (0.6-1.3) 02/02/25 07:00 Estim Creat Clear Calc 46.7 mL/min (>60) L 02/02/25 07:00 eGFR 59 See Note (60-) L 02/02/25 07:00 BUN/Creatinine Ratio 17 Ratio (12-20) 02/02/25 07:00 Glucose 109 mg/dL (74-106) H 02/02/25 07:00 Calculated Osmolality 285 (275-295) 02/02/25 07:00 Lactic Acid 1.3 mMol/L (0.4-2.0) 02/02/25 07:00 Calcium 8.9 mg/dL (8.3-10.6) 02/02/25 07:00 Corrected Calcium 9.1 mg/dL (8.5-10.1) 02/02/25 07:00 Magnesium 2.0 mg/dL (1.6-2.6) 02/01/25 16:02 Total Bilirubin 7.3 mg/dL (0.3-1.2) H D 02/02/25 07:00 AST 301 U/L (0-34) H 02/02/25 07:00 ALT 265 U/L (10-49) H 02/02/25 07:00 Alkaline Phosphatase 67 U/L (46-116) 02/02/25 07:00 Lactate Dehydrogenase 749 U/L (120-246) H 02/01/25 08:00 Troponin I < 0.020 ng/mL (0.0-0.045) 02/01/25 08:00 B-Natriuretic Peptide 175 pg/mL (0-100) H 02/01/25 08:00 Total Protein 6.1 gm/dL (5.7-8.2) 02/02/25 07:00 Albumin 3.7 gm/dL (3.4-4.8) 02/02/25 07:00 Globulin 2.4 gm/dL (2.3-3.5) 02/02/25 07:00 Albumin/Globulin Ratio 1.5 (1.2-2.2) 02/02/25 07:00 Lipase 52 U/L (12-53) 02/02/25 07:00 Procalcitonin 9.98 ng/ml (0.0-0.49) H 02/02/25 07:00 Ur Collection Type UCC 02/01/25 14:10 Urine Color Yellow (Lt Yel-Yel) 02/01/25 14:10 Urine Clarity Hazy (Clear/Hazy) 02/01/25 14:10 Urine pH 7.0 (5.0-7.0) 02/01/25 14:10 Ur Specific [place] 1.021 (1.001-1.035) 02/01/25 14:10 Urine Protein Trace (Neg - Trace) 02/01/25 14:10 Urine Glucose (UA) 4+ (Negative) A 02/01/25 14:10 Urine Ketones 1+ (Negative) A 02/01/25 14:10 Urine Blood 1+ (Negative) A 02/01/25 14:10 Urine Nitrite Negative (Negative) 02/01/25 14:10 Urine Bilirubin Negative (Negative) 02/01/25 14:10 Urine Urobilinogen (Auto) 2.0 mg/dL (0.0-1.0) 02/01/25 14:10 Ur Leukocyte Esterase Positive (Negative) 02/01/25 14:10 Urine RBC 14 /hpf (0-3) H 02/01/25 14:10 Urine WBC 10 /hpf (0-5) H 02/01/25 14:10 Ur Squamous Epith Cells 2 /hpf (0-5) 02/01/25 14:10 Urine Bacteria 2+ (None) A 02/01/25 14:10 Urine Opiates Screen Negative (Negative) 02/01/25 14:10 Urine Fentanyl Screen Negative (Negative) 02/01/25 14:10 Ur Barbiturates Screen Negative (Negative) 02/01/25 14:10 U Amphetamin/Meth Scrn Negative (Negative) 02/01/25 14:10 U Benzodiazepines Scrn Negative (Negative) 02/01/25 14:10 U Cocaine Metab Screen Negative (Negative) 02/01/25 14:10 U Marijuana (THC) Screen Negative (Negative) 02/01/25 14:10 Imaging: Procedure(s): MR MRCP Accession Number(s): [id number] cc: Jaylen Daigle MD; Keith Alvares MD; Ivy Green MD~ MRI abdomen, without contrast. MRCP Date and time of exam: February 02 70,025 1137 hours INDICATIONS: Epigastric pain and abdominal pain beginning yesterday morning, gallbladder sonogram February 01, 2025 7 mm sludge ball versus gallbladder polyp, borderline thickening gallbladder wall Technique: Multiple axial and coronal images of the abdomen have been obtained with the Siemens 1.5T MRI scanner. Images obtained included T1 weighted transverse images, T2-weighted transverse images, T2-weighted transverse images fat-suppressed, T2 weighted haste fat suppressed transverse images, T1 weighted images, in and out of phase images, T2-weighted coronal images, breath hold, T2 weighted haze coronal images as well as T2 weighted coronal thick slab images, MRCP. Findings: No focal liver lesions No gallstones No gallbladder wall thickening or edema Normal common hepatic common bile duct no stones Negative for pancreatitis No splenomegaly No ascites Aorta normal size Small bilateral benign renal cysts IMPRESSION: Negative for cholelithiasis, negative cholecystitis Normal common hepatic common bile duct Dictated By: Keith Alvares MD Procedure(s): CT abdomen pelvis w [facility] Accession Number(s): [id number] cc: Jaylen Daigle MD; Keith Alvares MD; Ivy Green MD~ Examination: CT abdomen with intravenous contrast CT pelvis with intravenous contrast 2-D coronal reconstructions 2-D sagittal reconstructions Date and time of exam:February 02, 2025 1644 hours INDICATIONS: Epigastric pain and abdominal pain and elevated total bilirubin on laboratory examination today. CTDI: vol (mGy) 11.4 DLP: (mGycm) 651. Technique: Multiple axial sections of the abdomen and pelvis have been obtained. 64 slice high-resolution scanner used. 3 mm axial sections have been obtained, post intravenous injection 60 cc Isovue 370. 2-D sagittal, coronal reconstructions obtained. Low dose protocols were performed. One or more of the following dose reduction techniques were used; automated exposure control, adjustment of the mA and/or KV according to patient size, use of iterative reconstruction technique. Findings: Diffuse fatty infiltration throughout the liver, no intrahepatic biliary tract dilatation No gallstones, gallbladder wall does not appear thickened on this study No extrahepatic biliary tract dilatation not, Common bile duct stones Spleen is not enlarged No pancreatic mass Bilateral benign renal cysts 25 mm fat-containing abdominal hernia Normal appendix No bowel obstruction Colonic diverticulosis, no diverticulitis Absent uterus No pelvic mass Urinary bladder intact Prominent osteopenia Chronic osteoporotic compression L1 Moderate narrowing hip joints IMPRESSION: Diffuse fatty infiltration throughout the liver, no liver lesions or intrahepatic biliary tract dilatation No enlargement, hepatic or common bile duct, no common hepatic or common bile duct stones Negative for pancreatitis Normal appendix. No bowel obstruction Colonic diverticulosis, no diverticulitis Dictated By: Keith Alvares MD
[2025-02-02 07:15] LABS: Lactate (Lactic Acid) 1.3 mMol/L (0.4-2.0)
[2025-02-02 07:23] LABS: Basophils # (Auto) 0.0 Thou/mm3 (0.0-0.2); Basophils % (Auto) 1 % (0-2.5); Eosinophils # (Auto) 0.0 Thou/mm3 (0.0-0.5); Eosinophils % (Auto) 1 % (0-10); Hematocrit 34.0 % (36.0-46.0); Hemoglobin 11.1 g/dL (12.0-16.0); Immature Granulocytes Auto 0.03 Thou/mm3 (0.00-0.00); Lymphocytes # (Auto) 1.0 Thou/mm3 (1.0-4.8); Lymphocytes % (Auto) 13 % (10-50); Mean Corpuscular HGB Conc 32.6 g/dl (31.0-37.0); Mean Corpuscular Hemoglobin 29.2 pg (25.0-35.0); Mean Corpuscular Volume 90 fL (80-100); Monocytes # (Auto) 0.4 Thou/mm3 (0.0-0.8); Monocytes % (Auto) 5 % (0-12); Neutrophils # (Auto) 6.3 Thou/mm3 (1.8-7.7); Neutrophils % (Auto) 81 % (37-80); Nucleated Red Blood Cell # 0.00 Thou/mm3 (0.00-0.00); Nucleated Red Blood Cell % 0 /100 WBC (0); Platelet Count 114 Thou/mm3 (140-440); RDW Standard Deviation 45.1 fL (36.4-46.3); Red Blood Count 3.80 Miln/mm3 (4.00-5.20); White Blood Count 7.8 Thou/mm3 (3.6-11.0)
[2025-02-02 08:05] LABS: Alanine Aminotransferase 265 U/L (10-49); Albumin, Serum 3.7 gm/dL (3.4-4.8); Albumin/Globulin Ratio 1.5 (1.2-2.2); Alkaline Phosphatase 67 U/L (46-116); Anion Gap 10 (7-16); Aspartate Amino Transferase 301 U/L (0-34); BUN/Creatinine Ratio 17 Ratio (12-20); Bilirubin,Total 7.3 mg/dL (0.3-1.2); Blood Urea Nitrogen 17 mg/dL (9-23); Calcium 8.9 mg/dL (8.3-10.6); Calcium (Corrected) 9.1 mg/dL (8.5-10.1); Carbon Dioxide 26.3 mMol/L (20.0-31.0); Chloride 106 mMol/L (98-107); Creatinine (Component) 1.0 mg/dL (0.6-1.3); Estimated Creatinine Clearance 46.7 mL/min (>60); Globulin 2.4 gm/dL (2.3-3.5); Glucose 109 mg/dL (74-106); Osmolality,Calculated 285 (275-295); Potassium 3.2 mMol/L (3.4-5.1); Procalcitonin 9.98 ng/ml (0.0-0.49); Sodium 142 mMol/L (136-145); Total Protein 6.1 gm/dL (5.7-8.2); eGFR 59 See Note
[2025-02-02 09:35] LABS: Lipase 52 U/L (12-53)
[2025-02-02] MEDS: POTASSIUM CHL 10 mEq IVPB 10 MEQ/100 ML BAG 100 MEQ IV ×2 (11:09→14:29)
[2025-02-02] MEDS: SODIUM CHLORIDE 0.9% 500 ML 500 ML 999 ML IV (11:10)
--- NOTE | 2025-02-02 15:29 | XR_ITS ---
Examination: CT abdomen with intravenous contrast CT pelvis with intravenous contrast 2-D coronal reconstructions 2-D sagittal reconstructions Date and time of exam:February 02, 2025 1644 hours INDICATIONS: Epigastric pain and abdominal pain and elevated total bilirubin on laboratory examination today. CTDI: vol (mGy) 11.4 DLP: (mGycm) 651. Technique: Multiple axial sections of the abdomen and pelvis have been obtained. 64 slice high-resolution scanner used. 3 mm axial sections have been obtained, post intravenous injection 60 cc Isovue 370. 2-D sagittal, coronal reconstructions obtained. Low dose protocols were performed. One or more of the following dose reduction techniques were used; automated exposure control, adjustment of the mA and/or KV according to patient size, use of iterative reconstruction technique. Findings: Diffuse fatty infiltration throughout the liver, no intrahepatic biliary tract dilatation No gallstones, gallbladder wall does not appear thickened on this study No extrahepatic biliary tract dilatation not, Common bile duct stones Spleen is not enlarged No pancreatic mass Bilateral benign renal cysts 25 mm fat-containing abdominal hernia Normal appendix No bowel obstruction Colonic diverticulosis, no diverticulitis Absent uterus No pelvic mass Urinary bladder intact Prominent osteopenia Chronic osteoporotic compression L1 Moderate narrowing hip joints IMPRESSION: Diffuse fatty infiltration throughout the liver, no liver lesions or intrahepatic biliary tract dilatation No enlargement, hepatic or common bile duct, no common hepatic or common bile duct stones Negative for pancreatitis Normal appendix. No bowel obstruction Colonic diverticulosis, no diverticulitis
[2025-02-02] MEDS: POTASSIUM CHL 10 mEq IVPB 10 MEQ/100 ML BAG 75 MEQ IV (16:11)
--- NOTE | 2025-02-02 16:41 | ESPR_ITS ---
Documentation for date of: 02/02/25 Subjective Subjective Interval history: Patient was seen and examined at bedside. No acute events took place overnight. Patient lying in bed comfortably accompanied by santos at bedside. Denies chest pain, palpitations, SOB, or abdominal pain. Nausea and vomiting resolved. Granddaughter points out that the patient looks yellow on her skin. The patient is currently saturating well on room air. The patient has a median sternotomy scar, per patient she had corrective surgery of a hole in her heart over 30 years ago. Patient has been kept NPO prior to MRI and is requesting water and food. She just completed her MRCP with unremarkable findings (see assessment and plan) Exam Vital Signs Temp Pulse Resp BP Pulse Ox O2 Del Method 98.0 F 78 17 143/65 H 99 Room Air 02/02/25 15:38 02/02/25 15:38 02/02/25 15:38 02/02/25 15:38 02/02/25 15:38 02/02/25 15:38 Narrative Exam General: AOx3, cooperative, in no acute distress, looks stated age, Skin: Intact, no cyanosis or edema noted. Noted median sternotomy scar, varicose veins on lower extremity. Jaundice. HEENT: Atraumatic/normocephalic, STEPHANIE, neck supple Heart: RRR, S1 and S2 without clicks or murmurs Lungs: Clear on auscultation bilaterally, no difficulty breathing Abdomen: Soft, mild tenderness to deep palpation. Bowel sounds present . Vascular: Peripheral pulses palpable Neuro: No focal neurological deficits noted. Objective Labs 02/02/25 07:00 02/02/25 07:00 Labs: Laboratory Results - last 24 hr 02/01/25 02/01/25 02/02/25 16:02 20:24 07:00 WBC 7.8 RBC 3.80 L Hgb 11.1 L Hct 34.0 L MCV 90 MCH 29.2 MCHC 32.6 RDW Std Deviation 45.1 Plt Count 114 L Neut % (Auto) 81 H Lymph % (Auto) 13 [place] % (Auto) 5 Eos % (Auto) 1 Baso % (Auto) 1 Neut # (Auto) 6.3 Lymph # (Auto) 1.0 [place] # (Auto) 0.4 Eos # (Auto) 0.0 Baso # (Auto) 0.0 Immature Gran # (Auto) 0.03 H Absolute Nucleated RBC 0.00 Immature Gran % 0 Nucleated RBC % 0 Sodium 140 142 Potassium 3.7 D 3.2 L D Chloride 105 106 Carbon Dioxide 25.0 26.3 Anion Gap 10 10 BUN 10 17 Creatinine 0.7 1.0 Estim Creat Clear Calc 66.8 46.7 L eGFR > 60 59 L BUN/Creatinine Ratio 14 17 Glucose 144 H 109 H Calculated Osmolality 281 285 Lactic Acid 1.5 1.3 Calcium 9.2 8.9 Corrected Calcium 9.2 9.1 Magnesium 2.0 Total Bilirubin 5.3 H D 7.3 H D AST 669 H* 301 H ALT 384 H 265 H Alkaline Phosphatase 79 67 Total Protein 6.7 6.1 Albumin 4.0 3.7 Globulin 2.7 2.4 Albumin/Globulin Ratio 1.5 1.5 Lipase 52 Procalcitonin 10.08 H 9.98 H Quality Measures Quality Measures none Advance care planning discussed with:: patient Assessment & Plan Plan Patient is 73-year-old female with a past medical history of parkinsonism, atrial flutter, on Eliquis, bradycardia s/p pacemaker placement, in 2019, hypertension, history of pleural effusion, the patient came to ED [id number] for evaluation of epigastric abdominal pain which had started morning. Also associated with nausea and vomiting. Initial labs in the ED were concerning for cholecystitis versus cholangitis, noted leukocytosis, CHEM panel shows elevated total bilirubin as well as AST and ALT, T. bili 4.3, AST 669, ALT 334, alkaline phosphatase 79, LDH 749, procalcitonin 10.08, urinalysis shows 10 WBCs, 2+ bacteria, lactic acid 2.2,Ultrasound gallbladder showed 7 mm sludge ball or polyp, recommended MRCP or HIDA scan, EKG shows atrial flutter, rate controlled with bundle branch block pattern, no acute ST-T changes noted on EKG. Cardiology was consulted due to concern for MRI compatibility patient's pacemaker. Patient has an [employer] pacemaker [place] [address] Rajendra Maya in [place], MR conditional rated. MRCP completed successfully without complications with pacemaker compatable with the machine. Results were negative for cholelithiasis and cholecystitis. Normal common hepatic and common bile ducts. 1. History of bradycardia status post pacemaker 2. Paroxysmal atrial fibrillation 3. Essential hypertension 4. Abnormal LFTs-concern for cholecystitis versus cholangitis 5. Hyperlipidemia 6. History of pleural effusion 7. 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 Lilibeth Andrade, DO PGY I Attending Provider Attestation/Addendum I have personally seen and examined the patient separately on the above date of service and discussed the plan of care with the resident. I reviewed the resident Dr. Enriquez consultation progress note and agree with the resident findings and plan in the note above and have also edited the documentation to reflect my findings and plan. A 73-year-old female with a past medical history of sick sinus syndrome, bradycardia status post permanent pacemaker in 2020, [employer]ios device MR conditional, paroxysmal atrial fibrillation, history of open heart surgery for possible ASD versus VSD 40 years ago, parkinsonism, essential hypertension,, hyperlipidemia, mild anemia initially presented to the emergency department for epigastric abdominal pain along with nausea and vomiting. In the emergency department patient total bili was elevated at 4.3 and continued to increase along with AST and ALT increased at 669, ALT of 334 and alk phos of 79 and procalcitonin is 10.08, LDH 749. Lactate was 2.2. Ultrasound gallbladder showed 7 cm sludge and recommended MRCP or HIDA scan. Cardiology is consulted for MRI compatibility of the patient's pacemaker. EKG showed atrial fibrillation without any acute ST-T changes. Obtained the patient's pacemaker card from the family and patient has a [employer] pacemaker placed in 2020 and had apparently had a recent pacer check with her filling carrier in is functioning well. I completed the MRI form and patient can have an MRCP. Patient has a history of open heart surgery with possible ASD versus VSD repair 40 years ago and recommended an echocardiogram to for further evaluation and to obtain baseline for the patient. MRCP completed successfully without complications with pacemaker compatable with the machine. Results were negative for cholelithiasis and cholecystitis. Normal common hepatic and common bile ducts. LFTs improving but the bili increased to 7.3. Management of rest of the medical conditions as per primary team and other consultants. Thank you for the consult and allowing me to participate in the care of the patient. Cardiology will continue to follow. Ray Porter M.D. Interventional Cardiology
== END 2025-02-02 19:20 | disposition home or self-care (01) ==
PROVIDERS: Registered Nurse General Practice; Emergency Provider Family Medicine; PCP Family Medicine
DX: K57.30 Diverticulosis of large intestine without perforation or abscess without bleeding (principal); E87.6 Hypokalemia; R17 Unspecified jaundice; K76.0 Fatty (change of) liver, not elsewhere classified; I10 Essential (primary) hypertension; D72.829 Elevated white blood cell count, unspecified; I48.92 Unspecified atrial flutter; I45.10 Unspecified right bundle-branch block; I48.0 Paroxysmal atrial fibrillation; R07.9 Chest pain, unspecified; R06.02 Shortness of breath; E78.00 Pure hypercholesterolemia, unspecified; Z79.01 Long term (current) use of anticoagulants; Z95.0 Presence of cardiac pacemaker; I25.10 Atherosclerotic heart disease of native coronary artery without angina pectoris; Z95.1 Presence of aortocoronary bypass graft
CPT/HCPCS: 36415; 71045; 74177; 74181; 76705; 80053; 80307; 81001; 83605; 83615; 83690; 83735; 83880; 84145; 84484; 85025; 85610; 85730; 87040; 87076; 93005; 96361; 96365; 96366; 96375; 99284; A4649; J1885; J2543; J3475; J3480; J7030; J7999; Q9967; A9270

== ENCOUNTER → 2025-02-05 | Outpatient (CLI) | payer OTHER, SELFPAY ==
[2025-02-05 11:23] LABS: Basophils # (Auto) 0.1 Thou/mm3 (0.0-0.2); Basophils % (Auto) 1 % (0-2.5); Eosinophils # (Auto) 0.1 Thou/mm3 (0.0-0.5); Eosinophils % (Auto) 2 % (0-10); Hematocrit 39.2 % (36.0-46.0); Hemoglobin 12.9 g/dL (12.0-16.0); Immature Granulocytes Auto 0.03 Thou/mm3 (0.00-0.00); Lymphocytes # (Auto) 1.8 Thou/mm3 (1.0-4.8); Lymphocytes % (Auto) 39 % (10-50); Mean Corpuscular HGB Conc 32.9 g/dl (31.0-37.0); Mean Corpuscular Hemoglobin 29.1 pg (25.0-35.0); Mean Corpuscular Volume 88 fL (80-100); Monocytes # (Auto) 0.5 Thou/mm3 (0.0-0.8); Monocytes % (Auto) 12 % (0-12); Neutrophils # (Auto) 2.1 Thou/mm3 (1.8-7.7); Neutrophils % (Auto) 45 % (37-80); Nucleated Red Blood Cell # 0.00 Thou/mm3 (0.00-0.00); Nucleated Red Blood Cell % 0 /100 WBC (0); Platelet Count 182 Thou/mm3 (140-440); RDW Standard Deviation 43.3 fL (36.4-46.3); Red Blood Count 4.44 Miln/mm3 (4.00-5.20); White Blood Count 4.7 Thou/mm3 (3.6-11.0)
[2025-02-05 11:46] LABS: Alanine Aminotransferase 26 U/L (10-49); Albumin, Serum 4.1 gm/dL (3.4-4.8); Albumin/Globulin Ratio 1.5 (1.2-2.2); Alkaline Phosphatase 66 U/L (46-116); Anion Gap 10 (7-16); Aspartate Amino Transferase 38 U/L (0-34); BUN/Creatinine Ratio 13 Ratio (12-20); Bilirubin,Total 1.7 mg/dL (0.3-1.2); Blood Urea Nitrogen 13 mg/dL (9-23); Calcium 9.3 mg/dL (8.3-10.6); Calcium (Corrected) 9.3 mg/dL (8.5-10.1); Carbon Dioxide 29.7 mMol/L (20.0-31.0); Chloride 101 mMol/L (98-107); Creatinine (Component) 1.0 mg/dL (0.6-1.3); Globulin 2.7 gm/dL (2.3-3.5); Glucose 123 mg/dL (74-106); Osmolality,Calculated 282 (275-295); Potassium 4.1 mMol/L (3.4-5.1); Sodium 141 mMol/L (136-145); Total Protein 6.8 gm/dL (5.7-8.2); eGFR 59 See Note
== END | disposition home or self-care (01) ==
PROVIDERS: PCP Family Medicine; Referring Provider Family Medicine; Visit Provider Family Medicine
DX: R74.01 Elevation of levels of liver transaminase levels (principal)
CPT/HCPCS: 36415; 80053; 85025

== ENCOUNTER → 2025-02-14 | Outpatient (CLI) | payer MEDICARE, SELFPAY ==
[2025-02-14 17:07] LABS: Alanine Aminotransferase < 7 U/L (10-49); Albumin, Serum 4.4 gm/dL (3.4-4.8); Alkaline Phosphatase 53 U/L (46-116); Aspartate Amino Transferase 28 U/L (0-34); Bilirubin,Direct 0.5 mg/dL (0.0-0.3); Bilirubin,Total 1.2 mg/dL (0.3-1.2); Total Protein 7.5 gm/dL (5.7-8.2)
== END | disposition home or self-care (01) ==
LOC: COPL 15:48
PROVIDERS: PCP Family Medicine; Referring Provider Specialist; Visit Provider Specialist
DX: R94.5 Abnormal results of liver function studies (principal)
CPT/HCPCS: 36415; 80076

== ENCOUNTER 2025-02-21 14:32 | Emergency (ER) | payer OTHER, SELFPAY ==
[2025-02-21 14:33] VITALS: BMI 33.2
[2025-02-21 14:43] VITALS: BP 97/58; PULSE 88; RESP 20; TEMP 37.1; O2SAT 96
--- NOTE | 2025-02-21 14:46 | EKG_ITS ---
[facility] Test Date: 2025-02-21 Pat Name: JOURDAN GILL Department: Room: - Gender: Female Tar Leveler: : 1950 Requested By: Gigi Melchor (YIFAN) Order Number: [id number] Reading MD: Gigi Melchor (LOGISTICS/SHIPPER) Measurements Intervals [place] Rate: 78 P: CT: QRS: 40 QRSD: 104 T: 36 QT: 412 QTc: 471 Interpretive Statements ATRIAL FLUTTER/TACHYCARDIA INDETERMINATE AXIS LOW QRS VOLTAGE IN PRECORDIAL LEADS [QRS DEFLECTION < 1.0 mV IN CHEST LEADS] INCOMPLETE RIGHT BUNDLE BRANCH BLOCK [90+ ms QRS DURATION, TERMINAL R IN V1/V2, 40+ ms S IN I/aVL/V4/V5/V6] ANTEROSEPTAL MYOCARDIAL INFARCTION , PROBABLY RECENT [40+ ms Q WAVE IN V1-V4] ACUTE MA Compared to ECG 02/01/2025 07:31:07 Indeterminate axis now present Low QRS voltage now present Incomplete right bundle-branch block now present Right bundle-branch block no longer present T-wave abnormality no longer present Possible ischemia no longer present Myocardial infarct finding still present /store/S0/[id number].pdf
--- NOTE | 2025-02-21 14:50 | XR_ITS ---
Examination: PA lateral chest 2 views TECHNIQUE: Upright PA lateral chest 2 views Date and time: February 21, 2025, 1500 hours INDICATIONS: Chest pain weakness today FINDINGS: Normal heart size No pneumonia or pulmonary edema. Cardiac leads satisfactory position The osseous structures are demineralized with moderate thoracic spondylosis IMPRESSION: No pneumonia or pulmonary edema
--- NOTE | 2025-02-21 14:50 | PD.EDRME ---
Rapid Medical Screening Exam RME Arrival date/time: 02/21/25 14:32 74-year-old female presents to the Emergency Department today for complaint of generalized fatigue Chief Complaint: Shortness of Breath/Dyspnea Time Seen by Provider: 02/21/25 18:05 Vital signs: Vital Signs Temperature 98.7 F 02/21/25 14:43 Pulse Rate 88 02/21/25 14:43 Respiratory Rate 20 02/21/25 14:43 Blood Pressure 97/58 L 02/21/25 14:43 Pulse Oximetry (%) 96 02/21/25 14:43 Oxygen Delivery Method Room Air 02/21/25 14:43
[2025-02-21 15:40] LABS: Basophils # (Auto) 0.1 Thou/mm3 (0.0-0.2); Basophils % (Auto) 1 % (0-2.5); Eosinophils # (Auto) 0.1 Thou/mm3 (0.0-0.5); Eosinophils % (Auto) 1 % (0-10); Hematocrit 38.8 % (36.0-46.0); Hemoglobin 12.8 g/dL (12.0-16.0); Immature Granulocytes Auto 0.02 Thou/mm3 (0.00-0.00); Lymphocytes # (Auto) 2.4 Thou/mm3 (1.0-4.8); Lymphocytes % (Auto) 40 % (10-50); Mean Corpuscular HGB Conc 33.0 g/dl (31.0-37.0); Mean Corpuscular Hemoglobin 29.0 pg (25.0-35.0); Mean Corpuscular Volume 88 fL (80-100); Monocytes # (Auto) 0.5 Thou/mm3 (0.0-0.8); Monocytes % (Auto) 9 % (0-12); Neutrophils # (Auto) 3.0 Thou/mm3 (1.8-7.7); Neutrophils % (Auto) 49 % (37-80); Nucleated Red Blood Cell # 0.00 Thou/mm3 (0.00-0.00); Nucleated Red Blood Cell % 0 /100 WBC (0); Platelet Count 222 Thou/mm3 (140-440); RDW Standard Deviation 41.4 fL (36.4-46.3); Red Blood Count 4.41 Miln/mm3 (4.00-5.20); White Blood Count 6.0 Thou/mm3 (3.6-11.0)
[2025-02-21 16:02] LABS: B-Type Natriuretic Peptide 144 pg/mL (0-100); INR 1.1 (0.9-1.3); Partial Thromboplastin Time 32.2 Seconds (22.0-36.0); Prothrombin Time 11.9 Seconds (9.0-12.2)
[2025-02-21 16:14] LABS: Alanine Aminotransferase < 7 U/L (10-49); Albumin, Serum 4.1 gm/dL (3.4-4.8); Albumin/Globulin Ratio 1.5 (1.2-2.2); Alkaline Phosphatase 51 U/L (46-116); Anion Gap 10 (7-16); Aspartate Amino Transferase 24 U/L (0-34); BUN/Creatinine Ratio 16 Ratio (12-20); Bilirubin,Total 1.2 mg/dL (0.3-1.2); Blood Urea Nitrogen 25 mg/dL (9-23); Calcium 9.8 mg/dL (8.3-10.6); Calcium (Corrected) 9.8 mg/dL (8.5-10.1); Carbon Dioxide 30.7 mMol/L (20.0-31.0); Chloride 96 mMol/L (98-107); Creatinine (Component) 1.6 mg/dL (0.6-1.3); Estimated Creatinine Clearance 27.9 mL/min (>60); Globulin 2.8 gm/dL (2.3-3.5); Glucose 122 mg/dL (74-106); Magnesium 1.8 mg/dL (1.6-2.6); Osmolality,Calculated 279 (275-295); Potassium 3.2 mMol/L (3.4-5.1); Sodium 137 mMol/L (136-145); Total Protein 6.9 gm/dL (5.7-8.2); Troponin I 0.020 ng/mL (0.0-0.045); eGFR 33 See Note
--- NOTE | 2025-02-21 19:07 | EKG_ITS ---
[facility] Test Date: 2025-02-21 Pat Name: JOURDAN GILL Department: Room: - Gender: Female Ophthalmic Aide: : 1950 Requested By: José Jefferson Order Number: [id number] Reading MD: José Jefferson Measurements Intervals [place] Rate: 73 P: MA: QRS: 74 QRSD: 111 T: 120 QT: 231 QTc: 256 Interpretive Statements ATRIAL FLUTTER/TACHYCARDIA INCOMPLETE RIGHT BUNDLE BRANCH BLOCK [90+ ms QRS DURATION, TERMINAL R IN V1/V2, 40+ ms S IN I/aVL/V4/V5/V6] NONSPECIFIC ST & T-WAVE ABNORMALITY ABNORMAL RHYTHM ECG Compared to ECG 02/21/2025 14:53:39 T-wave abnormality now present Indeterminate axis no longer present Myocardial infarct finding no longer present /store/S0/[id number]/ecg/[id number].pdf
[2025-02-21 19:21] VITALS: BP 136/77; PULSE 74; RESP 16; TEMP 36.9; O2SAT 97
[2025-02-21 20:17] LABS: Troponin I < 0.020 ng/mL (0.0-0.045)
[2025-02-21 21:08] LABS: Collection Type, Urine Clean Catch
[2025-02-21] MEDS: POTASSIUM CHLORIDE 10% 20 MEQ/15 ML UDC 40 MEQ PO (21:22)
[2025-02-21 21:25] LABS: Bacteria,Urine Rare; Bilirubin,Urine Negative (Negative); Blood,Urine Trace (Negative); Clarity,Urine Turbid (Clear/Hazy); Color,Urine Lt-Yellow (Lt Yel-Yel); Culture Indicated,Urine Yes; Glucose, Urine 4+ (Negative); Ketones,Urine Negative (Negative); Leukocyte Esterase,Urine Positive (Negative); Nitrite,Urine Negative (Negative); PH,Urine 6.5 (5.0-7.0); Protein,Urine Negative (Neg - Trace); RBC,Urine 3 /hpf (0-3); Specific Gravity,Urine 1.013 (1.001-1.035); Squamous Epithelial Cell,Urine 4 /hpf (0-5); Urobilinogen,Urine Negative mg/dL (0.0-1.0); WBC,Urine 172 /hpf (0-5)
--- NOTE | 2025-02-21 21:43 | PD.EDWEAK ---
ED Weakness RME/HPI General Chief complaint: Shortness of Breath/Dyspnea Stated complaint: LOW O2, WEAKNESS, DIZZY, SWEATING Time Seen by Provider: 02/21/25 18:05 Arrival date/time: 02/21/25 14:32 RME / HPI RME / HPI Narrative: See [facility] for Dr. Field's HPI Documentation. Related Data Home Medications ?Medication ?Instructions ?Recorded ?Confirmed albuterol sulfate 90 mcg/actuation 2 puff inhalation BID PRN 12/23/21 12/23/21 aerosol inhaler Shortness Of Breath apixaban 5 mg tablet (Eliquis) 1 tab PO QDAY 12/23/21 12/23/21 Held on 12/23/21. Instructions: Resume on 12/24/21. NO SE [place]IM[place]ALL. carbidopa 25 mg-levodopa 100 mg 1 tab PO BID 12/23/21 12/23/21 disintegrating tablet clonazepam 0.5 mg tablet 1 tab PO HS 12/23/21 12/23/21 escitalopram oxalate 10 mg tablet 1 tab PO BID 12/23/21 12/23/21 gabapentin 300 mg capsule 1 cap PO QDAY 12/23/21 12/23/21 metoprolol tartrate 100 mg tablet 1 tab PO QDAY 12/23/21 12/23/21 pantoprazole 40 mg tablet,delayed 1 tab PO QDAY 12/23/21 12/23/21 release rosuvastatin 10 mg tablet 1 tab PO HS 12/23/21 12/23/21 Previous Rx's ?Medication ?Instructions ?Recorded ondansetron HCl 4 mg tablet 4 mg PO TID FOR NAUSEA #14 tabs 02/02/25 cefdinir 300 mg capsule 300 mg PO BID #14 caps 02/21/25 ondansetron 4 mg disintegrating 4 mg PO TID PRN nausea and 02/21/25 tablet vomiting 30 days #10 tabs Allergies Allergy/AdvReac Type Severity Reaction Status Date / Time No Known Allergies Allergy Verified 02/21/25 14:36 Review of Systems Review of Systems Systems Reviewed: All systems reviewed, normal except as documented Past Medical History Past Medical History NEUROLOGIC: Positive Neurological Disorders, Cerebrovascular Accident and Parkinson's Disease CARDIAC: Positive Cardiac Disorders, Hypercholesterolemia and Hypertension MUSCULOSKELETAL: Positive Musculoskeletal Disorders, Arthritis and Fibromyalgia Surgical History SURGICAL: Positive Coronary Artery Bypass Graft (30 years ago) and Pacemaker ED Exam Narrative Physical exam: See MDM for Dr. Field's Physical Exam Documentation. Course Quality Measures none Orders Category Date Time Status EKG (ED ONLY) *Do not use* NOW Care 02/21/25 14:46 Completed EKG (ED ONLY) *Do not use* NOW Care 02/21/25 19:07 Completed EKG (ED Only) Stat Exams 02/21/25 14:46 Draft EKG (ED Only) Stat Exams 02/21/25 19:07 Draft XR chest 2V Stat Exams 02/21/25 14:50 Completed B-Type Natriuretic Peptide Stat Lab 02/21/25 15:18 Completed CBC Stat Lab 02/21/25 15:18 Completed Comprehensive Metabolic Panel Stat Lab 02/21/25 15:18 Completed Magnesium Stat Lab 02/21/25 15:18 Completed Partial Thromboplastin Time Stat Lab 02/21/25 15:18 Completed Prothrombin Time with INR Stat Lab 02/21/25 15:18 Completed Troponin I Stat Lab 02/21/25 15:18 Completed Troponin I Stat Lab 02/21/25 19:42 Completed Urinalysis, C/S if Indicated Stat Lab 02/21/25 20:36 Completed Urine Culture Stat Lab 02/21/25 20:36 Completed KCL 10% Liq UDC 15 ML Med 02/21/25 21:07 Discontinued 40 meq PO X1 ONE cefTRIAXone [Rocephin] 1,000 mg Med 02/21/25 21:37 Discontinued Lidocaine 1% 20 ml [Xylocaine 1% 20 ML] 2.1 ml IM X1 Vital Signs Vital signs: Vital Signs Temperature 98.7 F 02/21/25 14:43 Pulse Rate 88 02/21/25 14:43 Respiratory Rate 20 02/21/25 14:43 Blood Pressure 97/58 L 02/21/25 14:43 Pulse Oximetry (%) 96 02/21/25 14:43 Oxygen Delivery Method Room Air 02/21/25 14:43 Weakness MDM Narrative MDM Narrative:: Scribe Attestation: I, Amelia Zuniga, am scribing for and in the presence of Dr. Field. This section includes all my notes and documentations, including HPI, PE, and ED course. José Field MD HPI: 74 y/o female with Hx of CVA, Parkinson's Disease, and SHx of CABG with Pacemaker presents with generalized weakness and fatigue x 1 week. No other complaints. ROS: All negative except as documented in HPI. Physical Exam: General: Alert and oriented. No acute distress when remaining still. Eyes: Conjunctivae and lids clear. ENT: No nasal congestion. Neck: Supple. Heart: RRR. Lungs: No respiratory distress. Good air movement. No rhonchi, wheezing, rales. Abdomen: Soft and nontender. Normal bowel sounds. No distension. No rebound or guarding. Back: No CVA tenderness. Skin: Warm and dry. Neuro: Alert and oriented X 3. CN 2-12 grossly normal. No peripheral motor deficits. I reviewed all diagnostic test results: My interpretation of the serial EKG is: Sinus rhythm versus atrial fibrillation (73 bpm) with nonspecific ST-T changes. My interpretation of the chest x-ray is: NAD. Blood tests remarkable for K 3.2 and negative Troponin X 2. UA showed positive leukocyte esterase, 3 RBC, 172 WBC, and bacteria. At this point, diagnoses include: UTI. Treatment here included: Rocephin 1 G IM and oral KCL 40 meq. Recommended outpatient care. Based on my best medical judgment, made decision no further evaluation or treatment indicated at this time. Patient understands and agrees to the discharge instructions customized and printed, see below. Discharge instructions from Dr. Field: 1. After evaluation, you have UTI (see attached handout).?There is no heart attack or other serious condition. 2. Cefdinir to kill the germs causing the infection. 3. For good hydration, increase oral fluid and maintain clear urine. If dark or yellow, increase oral fluid. Zofran for nausea/vomiting.? 4. See a private doctor on 02/25/2025 for recheck.?Ask to check the final urine culture results from today to make sure cefdinir doesn't need to be changed due to resistance. For good hydration, increase oral fluid and maintain clear urine. If dark or yellow, increase oral fluid. To make sure there is no serious underlying heart condition, ask to help you get more tests for your heart that cannot be done here in the ER. Such as Holter Monitor (cardiac monitoring at home from a day to even a month), heart stress test (on treadmill or with medication), echocardiogram (imaging of your heart structures), heart catherization (checking for blockages in your heart arteries), and a referral to see a Carroting Machine Offbearer. 5. Seek immediate medical care with worsening, fever, or with any concerns. José Field MD Patient data External records reviewed:: [facility] previous records (Reviewed prior ED records from 02/02/25. Patient was seen for Hypokalemia.) Clinical information provided by:: patient Social determinants that could affect healthcare access:: none Patient has the following chronic illnesses:: Parkinson's Disease, Hypercholesterolemia, Hypertension, Arthritis and Fibromyalgia How is presenting disease/condition affected by chronic disease/condition?: exacerbated by Evaluation data The following diagnostics were reviewed and interpreted by me:: lab results, radiology exam(s) and EKG tracing(s) (My interpretation of the EKG is: Sinus rhythm versus atrial fibrillation (73 bpm) with nonspecific ST-T changes. José Field MD) Lab and/or radiology exams considered but not ordered:: None Interpretation Summary: I reviewed all diagnostic test results: My interpretation of the serial EKG is: Sinus rhythm versus atrial fibrillation (73 bpm) with nonspecific ST-T changes. My interpretation of the chest x-ray is: NAD. Blood tests remarkable for K 3.2 and negative Troponin X 2. UA showed positive leukocyte esterase, 3 RBC, 172 WBC, and bacteria. Medications / Prescriptions Medications or Prescriptions considered but not ordered:: None Medication administrations:: Medication Administration History Discontinued Medications Ceftriaxone Sodium 1,000 mg/ (Lidocaine HCl 2.1 ml) 0 mg IM X1 ONE Stop: 02/21/25 21:38 Last Admin: 02/21/25 21:49 Dose: 1,000 mg Documented By: EE Potassium Chloride (Potassium Chloride 10% 20 Meq/15 Ml Udc) 40 meq PO X1 ONE Stop: 02/21/25 21:08 Last Admin: 02/21/25 21:22 Dose: 40 meq Documented By: CB Treatment here included: Rocephin 1 G IM and oral KCl 40 meq. Consultations Consultation(s) initiated? (list below): No Diagnosis Weakness Differential Diagnosis: acute myocardial infarction, hypoglycemia, hypothyroidism, rhabdomyolysis, sepsis and dehydration Most likely diagnosis given after review of the tests above:: UTI Admission Indicated Admission indicated?: not indicated Explain why admission is indicated or not indicated:: With significant improvement and no condition needing emergent intervention, there was no indication for admission. Admission Request Was there a request for admission?: No Disposition Plan Disposition Plan: Discharge Discharge Attestation Discharge Attestation: The patient and all family members were given an opportunity to ask questions and understood the discharge instructions. Discharge instructions specifically effects, indications for sooner follow up or return to the emergency department, and the expected course of current diagnosis. Patient condition: Stable Discharge Plan Plan Patient Disposition: HOME (Self Care) Prescriptions/Referrals Prescriptions/Med Rec: New cefdinir 300 mg capsule 300 mg PO BID Qty: 14 0RF ondansetron 4 mg tablet,disintegrating 4 mg PO TID PRN (Reason: nausea and vomiting) 30 Days Qty: 10 0RF No Action metoprolol tartrate 100 mg tablet 1 tab PO QDAY clonazepam 0.5 mg tablet 1 tab PO HS Patient Comments: TAKE 1 TABLET BY MOUTH EVERY DAY AT BEDTIME NEEDED pantoprazole 40 mg tablet,delayed release (DR/EC) 1 tab PO QDAY Patient Comments: TAKE 1 TABLET BY MOUTH EVERY DAY gabapentin 300 mg capsule 1 cap PO QDAY albuterol sulfate 90 mcg/actuation HFA aerosol inhaler 2 puff INHALATION BID PRN (Reason: Shortness Of Breath) Patient Comments: PLEASE SEE ATTACHED FOR DETAILED DIRECTIONS escitalopram oxalate 10 mg tablet 1 tab PO BID rosuvastatin 10 mg tablet 1 tab PO HS Patient Comments: TAKE 1 TABLET BY MOUTH EVERY DAY carbidopa-levodopa 25-100 mg tablet,disintegrating 1 tab PO BID Patient Comments: TAKE 1 TABLET BY MOUTH EVERY DAY Eliquis 5 mg tablet 1 tab PO QDAY Patient Comments: TAKE 1 TABLET BY MOUTH TWICE A DAY ondansetron HCl 4 mg tablet 4 mg PO TID MDD 3 Qty: 14 0RF Referrals: Ivy Dhillon MD [Primary Care Provider] - In 1 week Problem List Clinical Impression: UTI (urinary tract infection) Patient/Caregiver Discharge Instructions Discharge Activity: activity as tolerated Education Materials: ED CYSTITIS Female Adult Additional Instructions: Discharge instructions from Dr. Field: 1. After evaluation, you have UTI (see attached handout).? There is no heart attack or other serious condition. 2. Cefdinir to kill the germs causing the infection. 3. For good hydration, increase oral fluid and maintain clear urine. If dark or yellow, increase oral fluid. Zofran for nausea/vomiting.? 4. See a private doctor on 02/25/2025 for recheck.? Ask to check the final urine culture results from today to make sure cefdinir doesn't need to be changed due to resistance. For good hydration, increase oral fluid and maintain clear urine. If dark or yellow, increase oral fluid. To make sure there is no serious underlying heart condition, ask to help you get more tests for your heart that cannot be done here in the ER. Such as Holter Monitor (cardiac monitoring at home from a day to even a month), heart stress test (on treadmill or with medication), echocardiogram (imaging of your heart structures), heart catherization (checking for blockages in your heart arteries), and a referral to see a Carroting Machine Offbearer. 5. Seek immediate medical care with worsening, fever, or with any concerns. Print Language: Croatian Stand Alone Forms: Shirin Award Info., Patient Portal Info Letter
[2025-02-21] MEDS: cefTRIAXone 1,000 MG, LIDOCAINE 1% 20 ML 2.1 ML IM (21:49)
[2025-02-21 22:02] VITALS: BP 145/65; PULSE 78; RESP 19; TEMP 36.6; O2SAT 98
== END 2025-02-21 22:03 | disposition home or self-care (01) ==
PROVIDERS: Nurse Practitioner Primary Care; Emergency Provider Emergency Medicine; PCP Family Medicine
DX: N39.0 Urinary tract infection, site not specified (principal); R06.02 Shortness of breath; G20.A1 Parkinson's disease without dyskinesia, without mention of fluctuations; E78.00 Pure hypercholesterolemia, unspecified; I10 Essential (primary) hypertension; M19.90 Unspecified osteoarthritis, unspecified site; M79.7 Fibromyalgia; Z86.73 Personal history of transient ischemic attack (TIA), and cerebral infarction without residual deficits; Z95.1 Presence of aortocoronary bypass graft; Z95.0 Presence of cardiac pacemaker; Z79.899 Other long term (current) drug therapy
CPT/HCPCS: 36415; 71046; 80053; 81001; 83735; 83880; 84484; 85025; 85610; 85730; 87077; 87086; 87186; 93005; 99283; J0696; J3490; A9270

== ENCOUNTER → 2025-03-08 | Outpatient (CLI) | payer MEDICARE, MEDICAID, SELFPAY ==
[2025-03-08 08:48] LABS: Glucose Estimated Average 128 mg/dL (80-131); Hemoglobin A1C 6.1 % Hgb (4.8-6.0)
== END | disposition home or self-care (01) ==
LOC: COPL 07:53
PROVIDERS: PCP Family Medicine; Referring Provider Family Medicine; Visit Provider Family Medicine
DX: E11.3292 Type 2 diabetes mellitus with mild nonproliferative diabetic retinopathy without macular edema, left eye (principal)
CPT/HCPCS: 36415; 83036